=== PATIENT | female | born 1990 | race Caucasian/White ===

== ENCOUNTER 2016-09-27 06:20 | Emergency (ER) | payer SELFPAY ==
[~2016-09-27] VITALS: Ht 177.8 cm; Wt 92.0 kg
[~2016-09-27 06:20] MED LIST: CEPH500C PO
[2016-09-27 06:22] VITALS: Ht 177.8 cm; Wt 92.0 kg
[2016-09-27 07:11] LABS: BASO % 0.4 %; BASO ABS # 0.04 K/uL (0-0.2); COMPLETE YES; EOS % 2.2 %; HEMATOCRIT 42.9 % (37-47); IG% 0.1 %; LYMPH % 27.2 %; LYMPH ABS # 2.61 K/uL (1.2-3.4); MEAN CELL VOLUME 87.2 fL (80-100); MEAN CORPUSCULAR HEMOGLOBIN 30.7 pg (25-34); MEAN CORPUSCULAR HGB CONC 35.2 g/dl (32-36); MEAN PLATELET VOLUME 11.6 fL (7.4-10.4); MONO % 6.5 %; NEUT % 63.6 %; PLATELET COUNT 224 K/uL (130-400); RED BLOOD COUNT 4.92 M/uL (4.2-5.4); WHITE BLOOD COUNT 9.59 K/uL (4.8-10.8)
[2016-09-27] MEDS ORDERED: SODIUM CHLORIDE 0.9% 1000ML 2,000 ML IV STA (07:15)
[2016-09-27] MEDS ORDERED: ONDANSETRON 8 MG/54 ML D5W IV STA (07:15)
[2016-09-27 07:28] LABS: CALCIUM 9.1 mg/dl (8.5-10.1); CREATININE 0.83 mg/dl (0.60-1.20); POTASSIUM 3.8 mmol/L (3.5-5.1)
[2016-09-27 07:31] LABS: ALB/GLOB RATIO 1.3 (0.9-2)
[2016-09-27 08:14] LABS: URINE APPEARANCE CLOUDY (CLEAR); URINE BILIRUBIN NEG (NEG); URINE COLOR YELLOW; URINE EPITHELIAL CELL AUTO >30 /lpf (0-5); URINE NITRITE NEG (NEG); URINE PH 6.5 (4.5-7.5); URINE SPECIFIC GRAVITY 1.021 (1.000-1.030); UROBILINOGEN NEG (NEG); ZZUR CULT IF INDIC CLEAN CATCH YES
[2016-09-27 08:18] LABS: MANUAL MICROSCOPIC REQUIRED? NO; REVIEW REQ? YES
[2016-09-27 08:25] LABS: URINE MUCUS PRESENT (NONE PRSENT); URINE PATH CASTS 0-3 GRANULAR CASTS /lpf (0)
[2016-09-27 08:26] VITALS: PULSE 87; O2SAT 97
[2016-09-27] MEDS ORDERED: SULFAMETHOXAZOLE/TRIMETHOPRIM DS 800/160MG TAB PO STA (09:06)
[2016-09-27] MEDS ORDERED: PHENAZOPYRIDINE HCL 200 MG TAB PO STA (09:06)
[2016-09-27] MEDS ORDERED: PHEN-876 PO (09:11)
[2016-09-27] MEDS ORDERED: PROM25TA9 PO (09:11)
[2016-09-27] MEDS ORDERED: SULF800T23 PO (09:11)
[2016-09-27 09:37] VITALS: BP 118/76
--- NOTE | 2016-09-27 15:07 | EMERGENCY ROOM VISIT NOTE ---
History Report prepared by Edith: Jeremías Carrizales Under the Supervision of: Dr. Cheko Rivera M.D. First contact with patient: 06:42 Chief Complaint: ABDOMINAL PAIN Stated Complaint: STOMACH PAINS, NAUSEA Nursing Triage Summary: Patient c/o abdominal pain with associated n/v that began 3 days ago. LMP: . States she's had multiple negative preg tests at home. History of Present Illness The patient is a 26 year old female who presents to the Emergency Room with complaints of constant abdominal pain for the past three days. The pain is mostly in the center of her lower abdomen, and is rated 8/10 in severity. The patient also complains of nausea and diarrhea. Her last episode of vomiting was yesterday. The patient has had loose stools but no watery diarrhea. The patient has never had this pain before. She denies eating anything unusual. She does not know of any sick contacts. The patient denies any major medical problems. Her menstrual period is late, but she has had negative tests over the past few days. Patient denies LOC, headache, fevers, chills, diaphoresis, visual changes, neck pain, chest pain, breathing difficulties, back pain, melena , hematochezia, urinary symptoms, numbness, weakness, lymphadenopathy, rash, or other complaints. Source of History: patient Onset: three days ago Position: abdomen Symptom Intensity: 8/10 Timing: constant Associated Symptoms: + diarrhea (loose stools), + nausea, + vomiting Review of Systems See HPI for pertinent positives and negatives. A total of ten systems were reviewed and were otherwise negative. Past Medical & Surgical Medical Problems: (1) Contusion of foot, right (2) Diarrhea (3) Encounter for removal of sutures (4) Encounter for wound re-check (5) Foot laceration with complication (6) Intrauterine (7) Mass of foot or toe (8) Premature labor (9) Vomiting Surgical Problems: (1) Removal of ovarian cyst Family History Diabetes mellitus FH: cancer FH: hypertension Social History Smoking Status: Current Every Day Smoker Alcohol Use: occasionally Marital Status: Housing Status: lives with family Occupation Status: unemployed Current/Historical Medications Scheduled Sulfa/Trimethoprim (Bactrim Ds 800MG/160MG), 1 TAB PO BID Scheduled PRN Phenazopyridine HCl (Pyridium), 200 MG PO TID PRN for Frequency/Burning w/ Urination Promethazine Hcl (Phenergan), 25 MG PO Q6H PRN for Nausea Allergies Coded Allergies: No Known Allergies (Verified , 02/09/16) none Physical Exam Vital Signs Date Time Temp Pulse Resp B/P Pulse Ox O2 Delivery O2 Flow Rate FiO2 09/27/16 09:37 118/76 09/27/16 08:26 87 18 124/71 97 Room Air 09/27/16 06:22 36.8 91 18 133/79 97 Room Air Physical Exam GENERAL: Awake, alert, well-appearing, in no distress HENT: Normocephalic, atraumatic. Oropharynx unremarkable. EYES: Normal conjunctiva. Sclera non-icteric. NECK: Supple. No nuchal rigidity. FROM. No JVD. RESPIRATORY: Clear to auscultation. CARDIAC: Regular rate, normal rhythm. Extremities warm and well perfused. Pulses equal. ABDOMEN: Soft, non-distended. Epigastric tenderness to palpation. No rebound or guarding. No masses. RECTAL: Deferred. MUSCULOSKELETAL: Chest examination reveals no tenderness. The back is symmetrical on inspection without obvious abnormality. There is no CVA tenderness to palpation. No joint edema. LOWER EXTREMITIES: Calves are equal size bilaterally and non-tender. No edema. No discoloration. NEURO: Normal sensorium. No sensory or motor deficits noted. SKIN: No rash or jaundice noted. Medical Decision & Procedures Laboratory Results 09/27/16 07:00 Red Blood Count 4.92, Mean Corpuscular Volume 87.2, Mean Corpuscular Hemoglobin 30.7, Mean Corpuscular Hemoglobin Concent 35.2, Mean Platelet Volume 11.6, Neutrophils (%) (Auto) 63.6, Lymphocytes (%) (Auto) 27.2, Monocytes (%) (Auto) 6.5, Eosinophils (%) (Auto) 2.2, Basophils (%) (Auto) 0.4, Neutrophils # (Auto) 6.10, Lymphocytes # (Auto) 2.61, Monocytes # (Auto) 0.62, Eosinophils # (Auto) 0.21, Basophils # (Auto) 0.04 09/27/16 07:00 Test 09/27/16 07:00 09/27/16 07:40 White Blood Count 9.59 K/uL (4.8-10.8) Red Blood Count 4.92 M/uL (4.2-5.4) Hemoglobin 15.1 g/dL (12.0-16.0) Hematocrit 42.9 % (37-47) Mean Corpuscular Volume 87.2 fL (80-100) Mean Corpuscular Hemoglobin 30.7 pg (25-34) Mean Corpuscular Hemoglobin Concent 35.2 g/dl (32-36) Platelet Count 224 K/uL (130-400) Mean Platelet Volume 11.6 fL (7.4-10.4) Neutrophils (%) (Auto) 63.6 % Lymphocytes (%) (Auto) 27.2 % Monocytes (%) (Auto) 6.5 % Eosinophils (%) (Auto) 2.2 % Basophils (%) (Auto) 0.4 % Neutrophils # (Auto) 6.10 K/uL (1.4-6.5) Lymphocytes # (Auto) 2.61 K/uL (1.2-3.4) Monocytes # (Auto) 0.62 K/uL (0.11-0.59) Eosinophils # (Auto) 0.21 K/uL (0-0.5) Basophils # (Auto) 0.04 K/uL (0-0.2) RDW Standard Deviation 41.1 fL (36.4-46.3) RDW Coefficient of Variation 12.8 % (11.5-14.5) Immature Granulocyte % (Auto) 0.1 % Immature Granulocyte # (Auto) 0.01 K/uL (0.00-0.02) Anion Gap 7.0 mmol/L (3-11) Est Creatinine Clear Calc Drug Dose 124.1 ml/min Estimated GFR () 111.2 Estimated GFR (Non- 96.0 BUN/Creatinine Ratio 10.0 (10-20) Calcium Level 9.1 mg/dl (8.5-10.1) Total Bilirubin 0.7 mg/dl (0.2-1) Aspartate Amino Transf (AST/SGOT) 16 U/L (15-37) Alanine Aminotransferase (ALT/SGPT) 27 U/L (12-78) Alkaline Phosphatase 54 U/L (45-117) Total Protein 7.4 gm/dl (6.4-8.2) Albumin 4.2 gm/dl (3.4-5.0) Globulin 3.2 gm/dl (2.5-4.0) Albumin/Globulin Ratio 1.3 (0.9-2) Lipase 138 U/L (73-393) Urine Color YELLOW Urine Appearance CLOUDY (CLEAR) Urine pH 6.5 (4.5-7.5) Urine Specific [place] 1.021 (1.000-1.030) Urine Protein NEG (NEG) Urine Glucose (UA) NEG (NEG) Urine Ketones NEG (NEG) Urine Occult Blood 3+ (NEG) Urine Nitrite NEG (NEG) Urine Bilirubin NEG (NEG) Urine Urobilinogen NEG (NEG) Urine Leukocyte Esterase SMALL (NEG) Urine WBC (Auto) >30 /hpf (0-5) Urine RBC (Auto) 5-10 /hpf (0-4) Urine Hyaline Casts (Auto) 5-10 /lpf (0-5) Urine Epithelial Cells (Auto) >30 /lpf (0-5) Urine Bacteria (Auto) 2+ (NEG) Urine Pathogenic Casts 0-3 GRANULAR CASTS /lpf (0) Urine Mucus PRESENT (NONE PRSENT) Urine Test NEG (NEG) Laboratory results reviewed by me Medications Administered Medications (Trade) Dose Ordered Sig/Ger Route Start Time Stop Time Status Last Admin Dose Admin Sodium Chloride (Nss 1000ml) 2,000 ml @ 999 mls/hr Q2H1M STAT IV 09/27/16 07:15 09/27/16 09:15 DC 09/27/16 07:47 999 MLS/HR Ondansetron HCl (Zofran 8mg Iv) 8 mg NOW STAT IV 09/27/16 07:15 09/27/16 07:16 DC 09/27/16 07:46 8 MG Phenazopyridine HCl (Pyridium Tab) 200 mg NOW STAT PO 09/27/16 09:06 09/27/16 09:09 DC 09/27/16 09:25 200 MG Trimethoprim/ Sulfamethoxazole (Septra Ds 800/ 160MG Tab) 1 tab NOW STAT PO 09/27/16 09:06 09/27/16 09:09 DC 09/27/16 09:25 1 TAB ED Course 0714: The patient was evaluated in room A12b. A complete history and physical exam was performed. 0715: Zofran 8 mg IV, NSS 2000 ml @ 999 mls/hr. 0900: The patient was on her phone when I went to check on her. 09: Reassessed the patient. Her pain and nausea have resolved. Discussed the findings with her. She verbalized understanding and agreement of the treatment plan. The patient is ready for discharge. 0906: Septra Ds 800/160 mg PO, Pyridium 200 mg PO. Medical Decision Triage Nursing notes reviewed. The patient's presentation and history were concerning for abdominal pain. Etiologies such as viral syndrome, , biliary pathology, UTI, pancreatitis, mesenteric ischemia, aortic pathology, infections, genitourinary, perforated viscus, appendicitis, diverticulitis, obstruction, inflammatory bowel disease, renal colic, PUD,as well as others were entertained. The patient was evaluated. Her abdominal examination was benign. She was given normal saline and Zofran. On reassessment she felt much better with this. Repeat abdominal examination was benign. No pain elicited. She had an unremarkable CBC, chemistry panel, LFTs, lipase. Her test was negative. Urinalysis was concerning for infection. On further history the patient does note some dysuria and urinary frequency. She has a history of UTI. Culture was sent. Patient was given Bactrim and Pyridium. She'll be placed on his as an outpatient. She will also be given prescription Phenergan. She is no CVA tenderness or leukocytosis to suggest pyelonephritis. Conservative management was discussed and the patient was in agreement. I gave my usual and customary discussion regarding this issue. By the evaluation outlined above other emergent etiologies such as those listed in the differential, as well as others, were deemed relatively unlikely. The patient was informed about the findings as listed above. All questions were answered and she was pleased with the treatment. Return instructions were outlined and the patient was discharged in stable condition. The patient was referred for primary care follow-up for a recheck of the current condition. The chart was completed utilizing [employer] voice recognition software. Grammatical errors, random word insertions, pronoun errors, and incomplete sentences are an occasional consequence of this system due to software limitations, ambient noise, and hardware issues. Any formal questions or concerns about the content, text, or information contained within the body of this dictation should be directly addressed to the physician for clarification. Impression Primary Impression: Nausea Additional Impressions: UTI (urinary tract infection) Epigastric abdominal pain Scribe Attestation The scribe's documentation has been prepared under my direction and personally reviewed by me in its entirety. I confirm that the note above accurately reflects all work, treatment, procedures, and medical decision making performed by me. Departure Information Dispostion Home / Self-Care Prescriptions Phenazopyridine HCl (Pyridium) 200 Mg Tab 200 MG PO TID Y for Frequency/Burning w/Urination, #6 TAB Prov: Cheko Rivera MD 09/27/16 Promethazine Hcl (Phenergan) 25 Mg Tab 25 MG PO Q6H Y for Nausea, #8 TAB Prov: Cheko Rivera MD 09/27/16 Sulfa/Trimethoprim (Bactrim Ds 800MG/160MG) Tab 1 TAB PO BID, #5 TAB Prov: Cheko Rivera MD 09/27/16 Referrals No Doctor, Assigned (PCP) Forms HOME CARE DOCUMENTATION FORM, IMPORTANT VISIT INFORMATION, Work Instructions Patient Instructions My [facility] Additional Instructions Phenergan 25mg tabs, one every six hours for nausea. Trimethoprim-Sulfamethoxazole(Bactrim DS): Take one pill twice daily for 3 days for your urine infection. All antibiotics can cause diarrhea. If this occurs and you feel worse or it does not resolve in 1-2 days follow up with your doctor or return to the Emergency Department as this could be signs of serious underlying problems. Any medication can cause an allergic reaction, stop the pills immediately and return to the ER for rash, hives, breathing difficulties, or swelling. Pyridium 200mg: Take one pill three times daily as needed for urinary discomfort. This medication will turn your urine orange. This is normal and nothing to be concerned about. Ibuprofen(Motrin, Advil) may be used for fever or pain. Use 600mg every six hours as needed. Take with food. Avoid using more than 2400mg in a 24 hour period. Do not use 2400mg per day for more than three consecutive days without physician direction. Prolonged inappropriate use can lead to stomach upset or ulcers. (AND/OR) Acetaminophen(Tylenol) may be used for fever or pain. Use 1000mg every six hours as needed. Avoid using more than 4000mg in a 24 hour period. Rest and drink plenty of fluids. Continue current medications. Return to the ER immediately for worsening or persistent abdominal pain, vomiting, fevers, back or flank pain, worsening of your condition, or as needed. Follow up with a primary physician next week for a recheck of the current condition. Problem Qualifiers
== END 2016-09-27 09:37 | disposition home or self-care (01) ==
LOC: C.EDB 06:21 → C.EDA 09:37
DX: N39.0 Urinary tract infection, site not specified (principal); R11.2 Nausea with vomiting, unspecified; R10.13 Epigastric pain; Z83.3 Family history of diabetes mellitus; Z82.49 Family history of ischemic heart disease and other diseases of the circulatory system; F17.210 Nicotine dependence, cigarettes, uncomplicated

== ENCOUNTER 2016-11-05 11:09 | Emergency (ER) | payer SELFPAY ==
[~2016-11-05] VITALS: Ht 177.8 cm; Wt 86.6 kg
[~2016-11-05 11:09] MED LIST changes: -CEPH500C PO; +PHEN-876 PO; +PROM25TA9 PO; +SULF800T23 PO
[2016-11-05 11:15] VITALS: TEMP 36.9; Ht 177.8 cm; Wt 86.6 kg
[2016-11-05] MEDS ORDERED: SODIUM CHLORIDE 0.9% 1000ML 1,000 ML IV STA (11:55)
[2016-11-05] MEDS ORDERED: ONDANSETRON INJ 2 MG/ML 2 ML VIAL IV STA (11:55)
[2016-11-05 12:15] LABS: BASO % 0.2 %; BASO ABS # 0.02 K/uL (0-0.2); COMPLETE YES; EOS % 1.9 %; HEMATOCRIT 40.1 % (37-47); IG% 0.2 %; LYMPH % 22.3 %; LYMPH ABS # 2.24 K/uL (1.2-3.4); MEAN CELL VOLUME 84.2 fL (80-100); MEAN CORPUSCULAR HEMOGLOBIN 30.9 pg (25-34); MEAN CORPUSCULAR HGB CONC 36.7 g/dl (32-36); MEAN PLATELET VOLUME 11.3 fL (7.4-10.4); MONO % 8.1 %; NEUT % 67.3 %; PLATELET COUNT 213 K/uL (130-400); RED BLOOD COUNT 4.76 M/uL (4.2-5.4); WHITE BLOOD COUNT 10.03 K/uL (4.8-10.8)
[2016-11-05 12:22] LABS: URINE APPEARANCE CLOUDY (CLEAR); URINE COLOR DK YELLOW; URINE EPITHELIAL CELL AUTO >30 /lpf (0-5); URINE NITRITE NEG (NEG); URINE PH 6.5 (4.5-7.5); URINE SPECIFIC GRAVITY 1.028 (1.000-1.030); UROBILINOGEN NEG (NEG); ZZUR CULT IF INDIC CLEAN CATCH YES
[2016-11-05 12:28] LABS: MANUAL MICROSCOPIC REQUIRED? NO; REVIEW REQ? YES; URINE BILIRUBIN NEG (NEG)
[2016-11-05 12:38] LABS: URINE MUCUS PRESENT (NONE PRSENT)
[2016-11-05 12:41] LABS: BUN/CREATININE RATIO 8.4 (10-20); CREATININE 0.7 mg/dl (0.60-1.20); POTASSIUM 3.5 mmol/L (3.5-5.1)
[2016-11-05] MEDS ORDERED: ONDA4TAB10 SL (13:49)
--- NOTE | 2016-11-05 13:49 | EMERGENCY ROOM VISIT NOTE ---
History Report prepared by Edith: Zayra Michael Under the Supervision of: Dr. Kodak Obrien D.O. First contact with patient: 11:47 Chief Complaint: NAUSEA Stated Complaint: NAUSEA,VOMITING,CRAMPING Nursing Triage Summary: LUQ abd pain for 6 days. Having trouble keeping anything down. Recently found out she was , states this does not feel like her other pregnancies and morning sickness. Noticed today that she had mucus in her stool. Vomiting. 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 The patient rates her current pain as a 4/10 in severity. The patient states that along with her abdominal pain she has had nausea and vomiting. She denies any recent diarrhea. She states that she found out she was a few days ago and is between 1- 2 months but states this feels different than her previous symptoms. She states this is currently her third . She states that she has been unable to eat or to have proper fluid intake due to the nausea and vomiting. The patient states her last menstrual period was the beginning of last month. Source of History: patient Onset: 6 days [employer]ING [employer]TER Position: abdomen (middle) Symptom Intensity: 4/10 Timing: other (persistent) Associated Symptoms: + nausea, + vomiting, No diarrhea Review of Systems See HPI for pertinent positives & negatives. A total of 10 systems reviewed and were otherwise negative. Past Medical & Surgical Medical Problems: (1) Contusion of foot, right (2) Diarrhea (3) Encounter for removal of sutures (4) Encounter for wound re-check (5) Foot laceration with complication (6) Intrauterine (7) Mass of foot or toe (8) Premature labor (9) Vomiting Surgical Problems: (1) Removal of ovarian cyst Family History Diabetes mellitus FH: cancer FH: hypertension Social History Smoking Status: Never Smoker Alcohol Use: occasionally Marital Status: Housing Status: lives with family Occupation Status: unemployed Current/Historical Medications No Active Prescriptions or Reported Meds Allergies Coded Allergies: No Known Allergies (Verified , 11/05/16) none Physical Exam Vital Signs Date Time Temp Pulse Resp B/P Pulse Ox O2 Delivery O2 Flow Rate FiO2 11/05/16 13:06 58 16 110/58 100 11/05/16 11:15 36.9 62 18 127/74 99 Room Air Physical Exam CONSTITUTIONAL/VITAL SIGNS: Reviewed / noted above. GENERAL: Non-toxic in appearance. INTEGUMENTARY: Warm, dry, and [place]. HEAD: Normocephalic. EYES: without scleral icterus or trauma. ENT/OROPHARYNX: clear and moist. LYMPHADENOPATHY/NECK: Is supple without lymphadenopathy or meningismus. RESPIRATORY: Lungs clear and equal. CARDIOVASCULAR: Regular rate and rhythm. GI/ABDOMEN: Soft and nontender. No organomegaly or pulsatile mass. No rebound or guarding. Normal bowel sounds. EXTREMITIES: Warm and well perfused. BACK: No CVA tenderness. NEUROLOGICAL: Intact without focal deficits. PSYCHIATRIC: normal affect. MUSCULOSKELETAL: Normally developed with good muscle tone. Medical Decision & Procedures Laboratory Results 11/05/16 12:00 Red Blood Count 4.76, Mean Corpuscular Volume 84.2, Mean Corpuscular Hemoglobin 30.9, Mean Corpuscular Hemoglobin Concent 36.7, Mean Platelet Volume 11.3, Neutrophils (%) (Auto) 67.3, Lymphocytes (%) (Auto) 22.3, Monocytes (%) (Auto) 8.1, Eosinophils (%) (Auto) 1.9, Basophils (%) (Auto) 0.2, Neutrophils # (Auto) 6.75, Lymphocytes # (Auto) 2.24, Monocytes # (Auto) 0.81, Eosinophils # (Auto) 0.19, Basophils # (Auto) 0.02 11/05/16 12:00 Test 11/05/16 12:00 11/05/16 12:05 White Blood Count 10.03 K/uL (4.8-10.8) Red Blood Count 4.76 M/uL (4.2-5.4) Hemoglobin 14.7 g/dL (12.0-16.0) Hematocrit 40.1 % (37-47) Mean Corpuscular Volume 84.2 fL (80-100) Mean Corpuscular Hemoglobin 30.9 pg (25-34) Mean Corpuscular Hemoglobin Concent 36.7 g/dl (32-36) Platelet Count 213 K/uL (130-400) Mean Platelet Volume 11.3 fL (7.4-10.4) Neutrophils (%) (Auto) 67.3 % Lymphocytes (%) (Auto) 22.3 % Monocytes (%) (Auto) 8.1 % Eosinophils (%) (Auto) 1.9 % Basophils (%) (Auto) 0.2 % Neutrophils # (Auto) 6.75 K/uL (1.4-6.5) Lymphocytes # (Auto) 2.24 K/uL (1.2-3.4) Monocytes # (Auto) 0.81 K/uL (0.11-0.59) Eosinophils # (Auto) 0.19 K/uL (0-0.5) Basophils # (Auto) 0.02 K/uL (0-0.2) RDW Standard Deviation 38.6 fL (36.4-46.3) RDW Coefficient of Variation 12.6 % (11.5-14.5) Immature Granulocyte % (Auto) 0.2 % Immature Granulocyte # (Auto) 0.02 K/uL (0.00-0.02) Anion Gap 12.0 mmol/L (3-11) Est Creatinine Clear Calc Drug Dose 143.1 ml/min Estimated GFR () 136.7 Estimated GFR (Non- 117.9 BUN/Creatinine Ratio 8.4 (10-20) Calcium Level 9.0 mg/dl (8.5-10.1) Total Bilirubin 1.0 mg/dl (0.2-1) Direct Bilirubin 0.2 mg/dl (0-0.2) Aspartate Amino Transf (AST/SGOT) 12 U/L (15-37) Alanine Aminotransferase (ALT/SGPT) 23 U/L (12-78) Alkaline Phosphatase 49 U/L (45-117) Total Protein 7.0 gm/dl (6.4-8.2) Albumin 3.9 gm/dl (3.4-5.0) Lipase 98 U/L (73-393) Urine Color DK YELLOW Urine Appearance CLOUDY (CLEAR) Urine pH 6.5 (4.5-7.5) Urine Specific [place] 1.028 (1.000-1.030) Urine Protein 1+ (NEG) Urine Glucose (UA) NEG (NEG) Urine Ketones 2+ (NEG) Urine Occult Blood NEG (NEG) Urine Nitrite NEG (NEG) Urine Bilirubin NEG (NEG) Urine Urobilinogen NEG (NEG) Urine Leukocyte Esterase TRACE (NEG) Urine WBC (Auto) 10-30 /hpf (0-5) Urine RBC (Auto) 0-4 /hpf (0-4) Urine Hyaline Casts (Auto) 1-5 /lpf (0-5) Urine Epithelial Cells (Auto) >30 /lpf (0-5) Urine Bacteria (Auto) 2+ (NEG) Urine Renal Epithelial Cells /lpf (0-5) Urine Pathogenic Casts /lpf (0) Urine Mucus PRESENT (NONE PRSENT) Urine Test POS (NEG) Laboratory results as stated above per my review. Medications Administered Medications (Trade) Dose Ordered Sig/Ger Route Start Time Stop Time Status Last Admin Dose Admin Sodium Chloride (Nss 1000ml) 1,000 ml @ 999 mls/hr Q1H1M STAT IV 11/05/16 11:55 11/05/16 12:55 DC 11/05/16 11:55 999 MLS/HR Ondansetron HCl (Zofran Inj) 4 mg NOW STAT IV 11/05/16 11:55 11/05/16 11:56 DC 11/05/16 12:11 4 MG ED Course 1152: Previous medical records were reviewed. The patient was evaluated in room C10. A complete history and physical examination was performed. 1155: Ordered Zofran Inj 4 mg IV, Sodium Chloride 1,000 ml @ 999 mls/hr IV. 1307: On reevaluation, the patient is hemodynamically stable. I discussed the results and findings with the patient. She verbalized agreement of the treatment plan. The patient was discharged home. Medical Decision Differential diagnosis:Etiologies such as gastroenteritis, food borne illness, infections, appendicitis, diverticulitis, inflammatory bowel disease, obstruction, GI bleed, biliary pathology, as well as others were entertained. This is a 26-year-old female who presents to the ED with a chief complaint of nausea and vomiting. She denies diarrhea. She states that her last menstrual period was the beginning of last month. She feels like she is . The patient has had 2 previous children. The patient states that she did a home test and it was positive. 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 She was given paperwork here to fill out for insurance. Her vital signs are normal. CBC and complete metabolic panel were normal. Lipase is negative. Urine did not show infection but appears contaminated. There was 2+ ketones. Cultures been sent. Positive test. The patient was hydrated with IV fluids. She was given Zofran IV. She was feeling better. She is felt to be stable for discharge. Impression Primary Impression: Dehydration Additional Impressions: Vomiting First trimester Scribe Attestation The scribe's documentation has been prepared under my direction and personally reviewed by me in its entirety. I confirm that the note above accurately reflects all work, treatment, procedures, and medical decision making performed by me. Departure Information Dispostion Home / Self-Care Prescriptions Ondasetron Odt (ZOFRAN ODT) 4 Mg Tab 4 MG SL Q6H for Nausea, #30 TAB Prov: Kodak Obrien D.O. 11/05/16 Referrals No Doctor, Assigned (PCP) Forms HOME CARE DOCUMENTATION FORM, IMPORTANT VISIT INFORMATION Patient Instructions My [facility] Additional Instructions Zofran: Allow one tablet to dissolve under the tongue every 6 hours as needed for nausea or vomiting. Follow-up with your strategic planning analyst. Call for an appointment. Return for any concerns or worsening. Problem Qualifiers
[2016-11-05 14:00] VITALS: BP 109/62; PULSE 65; O2SAT 98
--- NOTE | 2016-11-07 14:00 | Pharmacy Progress Note ---
ED Pharmacist Culture FollowUp Date of Service: Nov 07, 2016. Urine Cx from 11/05/16 if growing 2 organisms: gardnerella-lilke bacilli and federico albicans. Patient had not c/o urinary symptoms, nor was there notation of vaginal discharge or pruritis in provider's note. UA had > 30 epis; indicating contamination of the urine specimen. These are likely contaminants from vaginal christa (likely colonized w/ federico and gardnerella are normal christa). No action required.
== END 2016-11-05 14:01 | disposition home or self-care (01) ==
LOC: C.EDB 11:10 → C.EDC 14:01
DX: E86.0 Dehydration (principal); O21.9 Vomiting of pregnancy, unspecified; Z3A.00 Weeks of gestation of pregnancy not specified

== ENCOUNTER 2016-11-13 19:35 | Emergency (ER) | payer SELFPAY ==
[~2016-11-13] VITALS: Ht 177.8 cm; Wt 88.9 kg
[~2016-11-13 19:35] MED LIST changes: +ONDA4TAB10 SL; -PHEN-876 PO; -PROM25TA9 PO; -SULF800T23 PO
[2016-11-13 19:41] VITALS: TEMP 36.9
[2016-11-13 20:14] VITALS: Ht 177.8 cm; Wt 88.9 kg
[2016-11-13 20:31] LABS: BASO % 0.2 %; BASO ABS # 0.03 K/uL (0-0.2); COMPLETE YES; EOS % 2.8 %; HEMATOCRIT 40.1 % (37-47); IG% 0.3 %; LYMPH % 27.2 %; LYMPH ABS # 3.39 K/uL (1.2-3.4); MEAN CELL VOLUME 87.4 fL (80-100); MEAN CORPUSCULAR HEMOGLOBIN 31.2 pg (25-34); MEAN CORPUSCULAR HGB CONC 35.7 g/dl (32-36); MEAN PLATELET VOLUME 11.6 fL (7.4-10.4); MONO % 5.7 %; NEUT % 63.8 %; PLATELET COUNT 215 K/uL (130-400); RED BLOOD COUNT 4.59 M/uL (4.2-5.4); WHITE BLOOD COUNT 12.45 K/uL (4.8-10.8)
--- NOTE | 2016-11-13 20:32 | EMERGENCY ROOM VISIT NOTE ---
History Report prepared by Edith: Eros Lester Under the Supervision of: Dr. Kodak Dugan M.D. First contact with patient: 20:06 Chief Complaint: ED VAG BLEEDING Stated Complaint: , BLOOD ON TOILET PAPER History of Present Illness The patient is a 26 year old female who presents to the Emergency Room with complaints of vaginal bleeding that began today. Her bleeding is very mild. When the patient went to the bathroom today, she noticed a small amount of blood of the toilet paper. She is , and she was tested twice in the past. However, she does not know how far along she is. She is also having some abdominal discomfort. She denies any other symptoms. Source of History: patient Onset: today Position: other (vagina) Symptom Intensity: mild Quality: other (bleeding) Timing: intermittent Associated Symptoms: + abdominal pain Note: She denies any other symptoms. Review of Systems See HPI for pertinent positives & negatives. A total of 10 systems reviewed and were otherwise negative. Past Medical & Surgical Medical Problems: (1) Contusion of foot, right (2) Diarrhea (3) Encounter for removal of sutures (4) Encounter for wound re-check (5) Foot laceration with complication (6) Intrauterine (7) Mass of foot or toe (8) Premature labor (9) Vomiting Surgical Problems: (1) Removal of ovarian cyst Family History Diabetes mellitus FH: cancer FH: hypertension Social History Smoking Status: Never Smoker Alcohol Use: occasionally Marital Status: Housing Status: lives with family Occupation Status: unemployed Current/Historical Medications No Active Prescriptions or Reported Meds Allergies Coded Allergies: No Known Allergies (Verified , 11/13/16) none Physical Exam Vital Signs Date Time Temp Pulse Resp B/P Pulse Ox O2 Delivery O2 Flow Rate FiO2 11/13/16 21:39 16 11/13/16 21:15 56 18 110/50 99 Room Air 11/13/16 19:41 36.9 80 18 134/97 95 Room Air Physical Exam GENERAL: Patient is a healthy-appearing well-nourished HEAD: Normocephalic atraumatic EYES: Ocular movements intact pupils equal and react to light OROPHARYNX mucous membranes are moist no exudates present no erythema or edema present NECK: Supple no nuchal rigidity CHEST: Good equal expansion LUNGS: Clear and equal to auscultation CARDIAC: Normal S1 and S2 ABDOMEN: Soft nontender no guarding BACK: No CVA tenderness EXTREMITIES: No pain upon palpation normal muscle strength in all groups no clubbing cyanosis or edema NEURO: Patient is following commands is answering questions appropriately. Alert and oriented x3 Cranial Nerves 2-12 grossly intact Medical Decision & Procedures ER Provider Diagnostic Interpretation: Radiology results as stated below per my review and radiologist interpretation: ULTRASOUND OF THE PELVIS CLINICAL HISTORY: Vaginal bleeding. . COMPARISON STUDY: Pelvic ultrasound dated 02/09/2016. TECHNIQUE: Real-time, grayscale, and color flow sonography of the pelvis is performed both transabdominally and endovaginally. Images are reviewed in the transverse and longitudinal planes. FINDINGS: Uterus: The gravid uterus is normal in size and echotexture, measuring over 10 cm in length. A Nabothian cyst is incidentally noted in the cervix. Gestation: There is a single live intrauterine gestation with estimated heart rate of 140 bpm. The crown-rump length measures 0.73 cm, corresponding to an estimated age of 6 weeks 4 days. A yolk sac is noted. Ovaries: The ovaries are normal in size and morphology. The right ovary measures 3.3 x 2.4 x 2.6 cm and the left ovary measures 3.8 x 1.6 x 3.5 cm. A corpus luteum is suspected on the right. Follicles are seen on the left. Normal Doppler waveforms are shown within both ovaries. Pelvis: There is no free fluid in the cul-de-sac. No concerning adnexal lesion is seen. IMPRESSION: 1. There is a single live intrauterine gestation with an estimated age of 6 weeks 4 days by crown-rump length measurement. 2. The ovaries are normal in appearance with a corpus luteum suspected on the right. Electronically signed by: Fritz Boone M.D. 11/13/2016 9:18 PM Dictated Date/Time: 11/13/2016 9:15 PM Laboratory Results 11/13/16 20:20 Red Blood Count 4.59, Mean Corpuscular Volume 87.4, Mean Corpuscular Hemoglobin 31.2, Mean Corpuscular Hemoglobin Concent 35.7, Mean Platelet Volume 11.6, Neutrophils (%) (Auto) 63.8, Lymphocytes (%) (Auto) 27.2, Monocytes (%) (Auto) 5.7, Eosinophils (%) (Auto) 2.8, Basophils (%) (Auto) 0.2, Neutrophils # (Auto) 7.93, Lymphocytes # (Auto) 3.39, Monocytes # (Auto) 0.71, Eosinophils # (Auto) 0.35, Basophils # (Auto) 0.03 11/13/16 20:20 Test 11/13/16 20:00 11/13/16 20:20 Urine Color YELLOW Urine Appearance CLOUDY (CLEAR) Urine pH 6.5 (4.5-7.5) Urine Specific [place] 1.028 (1.000-1.030) Urine Protein NEG (NEG) Urine Glucose (UA) NEG (NEG) Urine Ketones NEG (NEG) Urine Occult Blood NEG (NEG) Urine Nitrite NEG (NEG) Urine Bilirubin NEG (NEG) Urine Urobilinogen NEG (NEG) Urine Leukocyte Esterase NEG (NEG) Urine WBC (Auto) 1-5 /hpf (0-5) Urine RBC (Auto) 0-4 /hpf (0-4) Urine Hyaline Casts (Auto) 1-5 /lpf (0-5) Urine Epithelial Cells (Auto) >30 /lpf (0-5) Urine Bacteria (Auto) NEG (NEG) Urine Crystals CALCIUM OXALATE (NONE Urine Pathogenic Casts /lpf (0) Urine Mucus PRESENT (NONE PRSENT) Urine Test POS (NEG) White Blood Count 12.45 K/uL (4.8-10.8) Red Blood Count 4.59 M/uL (4.2-5.4) Hemoglobin 14.3 g/dL (12.0-16.0) Hematocrit 40.1 % (37-47) Mean Corpuscular Volume 87.4 fL (80-100) Mean Corpuscular Hemoglobin 31.2 pg (25-34) Mean Corpuscular Hemoglobin Concent 35.7 g/dl (32-36) Platelet Count 215 K/uL (130-400) Mean Platelet Volume 11.6 fL (7.4-10.4) Neutrophils (%) (Auto) 63.8 % Lymphocytes (%) (Auto) 27.2 % Monocytes (%) (Auto) 5.7 % Eosinophils (%) (Auto) 2.8 % Basophils (%) (Auto) 0.2 % Neutrophils # (Auto) 7.93 K/uL (1.4-6.5) Lymphocytes # (Auto) 3.39 K/uL (1.2-3.4) Monocytes # (Auto) 0.71 K/uL (0.11-0.59) Eosinophils # (Auto) 0.35 K/uL (0-0.5) Basophils # (Auto) 0.03 K/uL (0-0.2) RDW Standard Deviation 41.3 fL (36.4-46.3) RDW Coefficient of Variation 12.9 % (11.5-14.5) Immature Granulocyte % (Auto) 0.3 % Immature Granulocyte # (Auto) 0.04 K/uL (0.00-0.02) Prothrombin Time 10.6 SECONDS (9.0-12.0) Prothromb Time International Ratio 1.0 (0.9-1.1) Activated Partial Thromboplast Time 24.5 SECONDS (21.0-31.0) Partial Thromboplastin Ratio 0.9 Anion Gap 10.0 mmol/L (3-11) Est Creatinine Clear Calc Drug Dose 151.3 ml/min Estimated GFR () 138.6 Estimated GFR (Non- 119.6 BUN/Creatinine Ratio 8.8 (10-20) Calcium Level 8.7 mg/dl (8.5-10.1) Total Bilirubin 0.3 mg/dl (0.2-1) Aspartate Amino Transf (AST/SGOT) 16 U/L (15-37) Alanine Aminotransferase (ALT/SGPT) 23 U/L (12-78) Alkaline Phosphatase 47 U/L (45-117) Total Protein 7.0 gm/dl (6.4-8.2) Albumin 3.7 gm/dl (3.4-5.0) Globulin 3.3 gm/dl (2.5-4.0) Albumin/Globulin Ratio 1.1 (0.9-2) Human Chorionic Gonadotropin, Quant 90823 mIU/mL Chemistry Specimen Hemolysis Labs reviewed by ED physician. ED Course 2001: Past medical records reviewed. The patient was evaluated in room C7. A complete history and physical examination was performed. 2130: Upon reexamination the patient is resting. I discussed results and treatment plan with the patient. She verbalizes agreement and understanding. The patient is ready for discharge. Medical Decision Differential diagnosis: Etiologies such as ectopic , dysfunction uterine bleeding, bleeding dyscrasia, trauma, infection, as well as others were entertained. This is a 18-year-old female who presents emergency department complaining of vaginal bleeding. The patient small amount of bleeding when wiping toilet paper. She is a benign abdominal examination. The patient is requesting an ultrasound to see the baby is okay. Ultrasound shows a 6 weeks baby. Repeat examination revealed improvement patient's symptoms. I stressed the need for bed rest while the patient was continued to have vaginal bleeding I also stressed the fact that the patient is at risk for miscarriage. The patient is A+ and therefore does not need RhoGam. Based on my findings I feel the patient can be safely discharged home for follow-up with OB. patient was in agreement with the treatment plan. Impression Primary Impression: Vaginal bleeding in Scribe Attestation The scribe's documentation has been prepared under my direction and personally reviewed by me in its entirety. I confirm that the note above accurately reflects all work, treatment, procedures, and medical decision making performed by me. Departure Information Dispostion Home / Self-Care Prescriptions No Active Prescriptions or Reported Meds Referrals No Doctor, Assigned (PCP) Forms HOME CARE DOCUMENTATION FORM, IMPORTANT VISIT INFORMATION, WORK / SCHOOL INSTRUCTIONS Patient Instructions ED Miscarriage Poss, My [facility] Additional Instructions Bedrest while having Vag Bleeding Follow up with DR Linda's office You have been examined and treated today on an emergency basis only. This is not a substitute for, or an effort to provide, complete comprehensive medical care. It is impossible to recognize and treat all injuries or illnesses in a single emergency department visit. It is therefore important that you follow up closely with your PCP. Call as soon as possible for an appointment. Thank you for your time and consideration. I look forward to speaking with you again soon. Please don't hesitate to call us if you have any questions. Problem Qualifiers Primary Impression: Vaginal bleeding in Trimester: first trimester Qualified Codes: O46.91 - Antepartum hemorrhage, unspecified, first trimester
[2016-11-13 20:33] LABS: URINE APPEARANCE CLOUDY (CLEAR); URINE BILIRUBIN NEG (NEG); URINE COLOR YELLOW; URINE EPITHELIAL CELL AUTO >30 /lpf (0-5); URINE NITRITE NEG (NEG); URINE PH 6.5 (4.5-7.5); URINE SPECIFIC GRAVITY 1.028 (1.000-1.030); UROBILINOGEN NEG (NEG)
[2016-11-13 20:37] LABS: MANUAL MICROSCOPIC REQUIRED? NO; REVIEW REQ? YES
[2016-11-13 20:39] LABS: PARTIAL THROMBOPLASTIN RATIO 0.9; PROTHROMBIN TIME (PATIENT) 10.6 SECONDS (9.0-12.0)
[2016-11-13 20:47] LABS: URINE MUCUS PRESENT (NONE PRSENT)
[2016-11-13 21:06] LABS: ALB/GLOB RATIO 1.1 (0.9-2); BUN/CREATININE RATIO 8.8 (10-20); CALCIUM 8.7 mg/dl (8.5-10.1); CREATININE 0.67 mg/dl (0.60-1.20); POTASSIUM 3.5 mmol/L (3.5-5.1)
[2016-11-13 21:15] VITALS: BP 110/50; PULSE 56; O2SAT 99
--- NOTE | 2016-11-13 21:19 | DIAGNOSTIC IMAGING REPORT ---
ULTRASOUND OF THE PELVIS CLINICAL HISTORY: Vaginal bleeding. . COMPARISON STUDY: Pelvic ultrasound dated 02/09/2016. TECHNIQUE: Real-time, grayscale, and color flow sonography of the pelvis is performed both transabdominally and endovaginally. Images are reviewed in the transverse and longitudinal planes. FINDINGS: Uterus: The gravid uterus is normal in size and echotexture, measuring over 10 cm in length. A Nabothian cyst is incidentally noted in the cervix. Gestation: There is a single live intrauterine gestation with estimated heart rate of 140 bpm. The crown-rump length measures 0.73 cm, corresponding to an estimated age of 6 weeks 4 days. A yolk sac is noted. Ovaries: The ovaries are normal in size and morphology. The right ovary measures 3.3 x 2.4 x 2.6 cm and the left ovary measures 3.8 x 1.6 x 3.5 cm. A corpus luteum is suspected on the right. Follicles are seen on the left. Normal Doppler waveforms are shown within both ovaries. Pelvis: There is no free fluid in the cul-de-sac. No concerning adnexal lesion is seen. IMPRESSION: 1. There is a single live intrauterine gestation with an estimated age of 6 weeks 4 days by crown-rump length measurement. 2. The ovaries are normal in appearance with a corpus luteum suspected on the right. Electronically signed by: Fritz Boone M.D. 11/13/2016 9:18 PM Dictated Date/Time: 11/13/2016 9:15 PM
== END 2016-11-13 21:40 | disposition home or self-care (01) ==
LOC: C.EDB 19:38 → C.EDC 21:40
DX: O20.9 Hemorrhage in early pregnancy, unspecified (principal); Z3A.01 Less than 8 weeks gestation of pregnancy; Z83.3 Family history of diabetes mellitus; Z82.49 Family history of ischemic heart disease and other diseases of the circulatory system

== ENCOUNTER 2016-11-18 23:59 | Inpatient (IN) | payer SELFPAY ==
[~2016-11-18] VITALS: Ht 177.8 cm; Wt 84.7 kg
[2016-11-19 00:15] VITALS: Ht 177.8 cm; Wt 84.7 kg
[2016-11-19] MEDS ORDERED: METOCLOPRAMIDE HCL INJ 5 MG/ML 2 ML VIAL IV STA (00:46)
[2016-11-19] MEDS ORDERED: SODIUM CHLORIDE 0.9% 1000ML 1,000 ML IV STA (00:46)
[2016-11-19] MEDS ORDERED: DiphenhydrAMINE HCL 50 MG/ML VIAL IV STA (00:46)
[2016-11-19] MEDS ORDERED: FAMOTIDINE 20MG/102 ML D5W ONE (00:56)
[2016-11-19] MEDS ORDERED: PANTOprazole INJ 80 MG in DEXTROSE 5% 100ML 100 ML IV SCH (01:00)
[2016-11-19 01:11] LABS: GASTRIC OCCULT BLOOD POS (NEG)
[2016-11-19 01:19] LABS: HEMATOCRIT 42.2 % (37-47); MEAN CELL VOLUME 84.1 fL (80-100); MEAN CORPUSCULAR HEMOGLOBIN 30.5 pg (25-34); MEAN CORPUSCULAR HGB CONC 36.3 g/dl (32-36); MEAN PLATELET VOLUME 11.9 fL (7.4-10.4); PLATELET COUNT 270 K/uL (130-400); RED BLOOD COUNT 5.02 M/uL (4.2-5.4); WHITE BLOOD COUNT 17.03 K/uL (4.8-10.8)
[2016-11-19 01:33] LABS: BUN/CREATININE RATIO 12.3 (10-20); CALCIUM 9.5 mg/dl (8.5-10.1); CREATININE 0.69 mg/dl (0.60-1.20); POTASSIUM 3.5 mmol/L (3.5-5.1)
[2016-11-19 01:41] LABS: BASO % 0.2 %; BASO ABS # 0.03 K/uL (0-0.2); COMPLETE YES; EOS % 0.4 %; IG% 0.3 %; LYMPH ABS # 2.21 K/uL (1.2-3.4); MONO % 5.5 %; NEUT % 80.6 %
--- NOTE | 2016-11-19 02:42 | History and Physical ---
History & Physical Date & Time of Service: Nov 19, 2016 at 02:41 Chief Complaint: Severe Vomiting,Blood In Vomit,Dehydration Primary Care Physician: No Doctor, Assigned History of Present Illness Source: patient 26 y/o F - 6 weeks - G4, P3 - no significant medical history - developed nausea and vomiting wich persisted over the last 2 days and presented to the ER. While in the ER she had an episode of coffee-ground emesis which was confirmed as hemoccult positive. She has mild central abdominal pain. She found out she was 1 week ago.. She denies SOB, CP, dysuria, fevers. Per hospital records she had presented to the ER 11/13 with c/o vaginal bleeding and had a ultrasound showing a viable fetus with appropriate gestational parameters. She has not foillowed up with an clinical services specialist as she states she does not have insurance. Past Medical/Surgical History Medical Problems: (1) Contusion of foot, right Status: Resolved (2) Diarrhea Status: Resolved (3) Encounter for removal of sutures Status: Resolved (4) Encounter for wound re-check Status: Resolved (5) Foot laceration with complication Status: Resolved (6) Intrauterine Status: Resolved (7) Mass of foot or toe Status: Resolved (8) Premature labor Status: Resolved (9) Vomiting Status: Resolved Surgical Problems: (1) Removal of ovarian cyst Status: Resolved Family History Diabetes mellitus FH: cancer FH: hypertension Mother with DM Father healthy Social History Smokes 5 cigarettes daily Smoking Status: Current Every Day Smoker Marital Status: Housing status: lives with family Occupational Status: unemployed Immunizations History of Influenza Vaccine: Unknown History of Tetanus Vaccine?: Yes Tetanus Immunization Date: Sep 08, 2009 History of Pneumococcal: Unknown History of Hepatitis B Vaccine: Unknown Multi-Drug Resistant Organisms History of MDRO: No Allergies Coded Allergies: No Known Allergies (Verified , 11/19/16) none Home Medications No Active Prescriptions or Reported Meds Review of Systems Constitutional: No chills, No fever, No sweats Eyes: No eye pain, No worsening of vision ENT: No hearing loss, No nasal symptoms, No unusual epistaxis Respiratory: No cough, No sputum, No wheezing Cardiovascular: No PND, No chest pain, No orthopnea Abdomen: + nausea, + pain, + vomiting, No constipation, No diarrhea Musculoskeletal: No joint pain, No muscle pain Genitourinary - Female: No dysuria, No urinary frequency, No urinary urgency Neurologic: No memory loss, No paralysis, No weakness Psychiatric: No depression symptoms Endocrine: No fatigue Hematologic / Lymphatic: No abnormal bleeding/bruising Integumentary: No rash Allergic / Immunologic: No environmental allergies Physical Exam Vital Signs Date Time Temp Pulse Resp B/P Pulse Ox O2 Delivery O2 Flow Rate FiO2 11/19/16 02:31 88 20 136/70 98 Room Air 11/19/16 01:04 66 11/19/16 00:52 98 Room Air 11/19/16 00:15 36.7 79 18 170/91 95 Room Air General Appearance: WD/WN, no apparent distress Head: normocephalic, atraumatic Eyes: normal inspection, EOMI ENT: normal ENT inspection, pharynx normal Neck: supple, no JVD Respiratory/Chest: chest non-tender, lungs clear, normal breath sounds Cardiovascular: regular rate, rhythm, no edema, no JVD, normal peripheral pulses Abdomen/GI: normal bowel sounds, soft, + pertinent finding (No significant tenderness) Back: normal inspection, no CVA tenderness, no muscle spasm Extremities/Musculoskelatal: normal inspection, no calf tenderness, normal capillary refill, no pedal edema, normal range of motion 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4 % Basophils (%) (Auto) 0.2 % Neutrophils # (Auto) 13.74 1.4-6.5 K/uL Lymphocytes # (Auto) 2.21 1.2-3.4 K/uL Monocytes # (Auto) 0.94 0.11-0.59 K/uL Eosinophils # (Auto) 0.06 0-0.5 K/uL Basophils # (Auto) 0.03 0-0.2 K/uL RDW Standard Deviation 37.5 36.4-46.3 fL RDW Coefficient of Variation 12.4 11.5-14.5 % Immature Granulocyte % (Auto) 0.3 % Immature Granulocyte # (Auto) 0.05 0.00-0.02 K/uL Gastric Fluid pH 5-7 Gastric Fluid Occult Blood POS NEG Sodium Level 140 136-145 mmol/L Potassium Level 3.5 3.5-5.1 mmol/L Chloride Level 105 98-107 mmol/L Carbon Dioxide Level 22 21-32 mmol/L Anion Gap 13.0 3-11 mmol/L Blood Urea Nitrogen 9 7-18 mg/dl Creatinine 0.69 0.60-1.20 mg/dl Est Creatinine Clear Calc Drug Dose 143.7 ml/min Estimated GFR () 137.3 Estimated GFR (Non- 118.5 BUN/Creatinine Ratio 12.3 10-20 Random Glucose 111 70-99 mg/dl Calcium Level 9.5 8.5-10.1 mg/dl Total Bilirubin 0.9 0.2-1 mg/dl Direct Bilirubin 0.2 0-0.2 mg/dl Aspartate Amino Transf (AST/SGOT) 14 15-37 U/L Alanine Aminotransferase (ALT/SGPT) 27 12-78 U/L Alkaline Phosphatase 52 45-117 U/L Total Protein 8.1 6.4-8.2 gm/dl Albumin 4.6 3.4-5.0 gm/dl Lipase 160 73-393 U/L Impression Assessment and Plan 26 y/o F - 6 weeks - G4, P3 - no significant medical history - developed nausea and vomiting wich persisted over the last 2 days and presented to the ER. While in the ER she had an episode of coffee-ground emesis which was confirmed as hemoccult positive. She has mild central abdominal pain. She found out she was 1 week ago.. She denies SOB, CP, dysuria, fevers. Per hospital records she had presented to the ER 11/13 with c/o vaginal bleeding and had a ultrasound showing a viable fetus with appropriate gestational parameters. She has not foillowed up with an clinical services specialist as she states she does not have insurance. 1) Hyperemesis and hematemesis - pt will be monitored on telemetry overnight and treated with antiemetics and IVF. We have consulted the GI service. Hitory would be most consistent with a Yudy-ceja tear however she has been placed on IV Protonix pending further evaluation. 2) 6 weeks - we have consulted VENTILATING EQUIPMENT INSTALLER considering her presentation on the and her current hyperemesis and lack of follow-up. Full code - SCDs due to hematemesis Total time for this admit including review of labs, meds, previous records- discussion with pt and ER attending 31 min Level of Care Telemetry Resuscitation Status FULL RESUSCITATION VTE Prophylaxis VTE Risk Assessment Done? Y/N: Yes Risk Level: Moderate Given or contraindicated: SCD's
[2016-11-19] MEDS ORDERED: ONDANSETRON INJ 2 MG/ML 2 ML VIAL IV PRN (02:45)
--- NOTE | 2016-11-19 03:14 | EMERGENCY ROOM VISIT NOTE ---
History First contact with patient: 00:20 Chief Complaint: VOMITING Stated Complaint: SEVERE VOMITING,BLOOD IN VOMIT,DEHYDRATION Nursing Triage Summary: patient states she is 7 weeks and has been having nausea and vomiting continuously since yesterday. History of Present Illness The patient is a 26 year old female who presents to the Emergency Room with complaints of intractable nausea and vomiting who is 7 weeks . This is her fourth . She follows with Dr. De Jesus. No prior history of hyperemesis gravidarum. Patient denies vaginal bleeding, vaginal discharge, lower abdominal pain, chest pain, dyspnea, fever, chills. Patient states she cannot stop vomiting. No diarrhea. This has been intermittent for the past month. Review of Systems See HPI for pertinent positives & negatives. A total of 10 systems reviewed and were otherwise negative. Past Medical/Surgical History Medical Problems: (1) Contusion of foot, right (2) Diarrhea (3) Encounter for removal of sutures (4) Encounter for wound re-check (5) Foot laceration with complication (6) Hematemesis (7) Hyperemesis (8) Intrauterine (9) Mass of foot or toe (10) Premature labor (11) Vomiting Surgical Problems: (1) Removal of ovarian cyst Family History Diabetes mellitus FH: cancer FH: hypertension Social History Smoking Status: Current Every Day Smoker Alcohol Use: occasionally Marital Status: Housing Status: lives with family Occupation Status: unemployed Current/Historical Medications No Active Prescriptions or Reported Meds Allergies Coded Allergies: No Known Allergies (Verified , 11/19/16) none Physical Exam Vital Signs Date Time Temp Pulse Resp B/P Pulse Ox O2 Delivery O2 Flow Rate FiO2 11/19/16 02:31 88 20 136/70 98 Room Air 11/19/16 01:04 66 11/19/16 00:52 98 Room Air 11/19/16 00:15 36.7 79 18 170/91 95 Room Air Pain Rating (0-10): 0 Physical Exam VITALS: Vitals are noted on the nurse's note and reviewed by myself. Vital signs stable. GENERAL: White female actively vomiting black coffee-ground emesis screaming and yelling nondiaphoretic, well-developed well-nourished. SKIN: The skin was without rashes, erythema, edema, or bruising. There is no tenting of the skin. Capillary reflex less than 2 seconds. HEAD: Normocephalic atraumatic. EARS: External auditory canals clear, tympanic membranes pearly fernandez without erythema or effusion bilaterally. EYES: Pupils equal round and reactive to light and accommodation. Conjunctivae without injection, sclerae without icterus. Extraocular movements intact. NOSE: Patent, turbinates without inflammation or discharge. MOUTH: Mucous membranes dry. Pharynx without erythema or exudate. Uvula midline. Airway patent. Tongue does not deviate. NECK: Supple without nuchal rigidity. No lymphadenopathy. No thyromegaly. Cervical spine is nontender. No JVD. HEART: Regular rate and rhythm without murmurs gallops or rubs. LUNGS: Clear to auscultation bilaterally without wheezes, rales or rhonchi. No dullness to percussion. No retractions or accessory muscle use. ABDOMEN: Positive bowel sounds x 4. Normal tympanic percussion. Soft, nontender, without masses or organomegaly. Palmer sign negative. No guarding or rebound tenderness. MUSCULOSKELETAL: No muscle atrophy, erythema, or edema noted. NEURO: Patient was alert and oriented to person place and time. Normal sensation to light and sharp touch. No focal neurological deficits. Medical Decision & Procedures Laboratory Results 11/19/16 00:40 Red Blood Count 5.02, Mean Corpuscular Volume 84.1, Mean Corpuscular Hemoglobin 30.5, Mean Corpuscular Hemoglobin Concent 36.3, Mean Platelet Volume 11.9, Neutrophils (%) (Auto) 80.6, Lymphocytes (%) (Auto) 13.0, Monocytes (%) (Auto) 5.5, Eosinophils (%) (Auto) 0.4, Basophils (%) (Auto) 0.2, Neutrophils # (Auto) 13.74, Lymphocytes # (Auto) 2.21, Monocytes # (Auto) 0.94, Eosinophils # (Auto) 0.06, Basophils # (Auto) 0.03 11/19/16 00:40 Test 11/19/16 00:40 White Blood Count 17.03 K/uL (4.8-10.8) Red Blood Count 5.02 M/uL (4.2-5.4) Hemoglobin 15.3 g/dL (12.0-16.0) Hematocrit 42.2 % (37-47) Mean Corpuscular Volume 84.1 fL (80-100) Mean Corpuscular Hemoglobin 30.5 pg (25-34) Mean Corpuscular Hemoglobin Concent 36.3 g/dl (32-36) Platelet Count 270 K/uL (130-400) Mean Platelet Volume 11.9 fL (7.4-10.4) Neutrophils (%) (Auto) 80.6 % Lymphocytes (%) (Auto) 13.0 % Monocytes (%) (Auto) 5.5 % Eosinophils (%) (Auto) 0.4 % Basophils (%) (Auto) 0.2 % Neutrophils # (Auto) 13.74 K/uL (1.4-6.5) Lymphocytes # (Auto) 2.21 K/uL (1.2-3.4) Monocytes # (Auto) 0.94 K/uL (0.11-0.59) Eosinophils # (Auto) 0.06 K/uL (0-0.5) Basophils # (Auto) 0.03 K/uL (0-0.2) RDW Standard Deviation 37.5 fL (36.4-46.3) RDW Coefficient of Variation 12.4 % (11.5-14.5) Immature Granulocyte % (Auto) 0.3 % Immature Granulocyte # (Auto) 0.05 K/uL (0.00-0.02) Gastric Fluid pH 5-7 Gastric Fluid Occult Blood POS (NEG) Anion Gap 13.0 mmol/L (3-11) Est Creatinine Clear Calc Drug Dose 143.7 ml/min Estimated GFR () 137.3 Estimated GFR (Non- 118.5 BUN/Creatinine Ratio 12.3 (10-20) Calcium Level 9.5 mg/dl (8.5-10.1) Total Bilirubin 0.9 mg/dl (0.2-1) Direct Bilirubin 0.2 mg/dl (0-0.2) Aspartate Amino Transf (AST/SGOT) 14 U/L (15-37) Alanine Aminotransferase (ALT/SGPT) 27 U/L (12-78) Alkaline Phosphatase 52 U/L (45-117) Total Protein 8.1 gm/dl (6.4-8.2) Albumin 4.6 gm/dl (3.4-5.0) Lipase 160 U/L (73-393) Medications Administered Medications (Trade) Dose Ordered Sig/Ger Route Start Time Stop Time Status Last Admin Dose Admin Metoclopramide HCl (Reglan Inj) 10 mg NOW STAT IV 11/19/16 00:46 11/19/16 00:47 DC 11/19/16 01:04 10 MG Diphenhydramine HCl 25 mg 25 mg NOW STAT IV 11/19/16 00:46 11/19/16 00:47 DC 11/19/16 01:04 25 MG Sodium Chloride 1,000 ml @ 999 mls/hr Q1H1M STAT IV 11/19/16 00:46 11/19/16 01:46 DC 11/19/16 01:03 999 MLS/HR Pantoprazole Sodium/Dextrose (Protonix Inj/D5 100ml) 120 ml @ 400 mls/hr NOW IV 11/19/16 01:00 12/19/16 00:59 11/19/16 01:54 400 MLS/HR ED Course Prior records/ancillary studies reviewed. Triage Nursing notes reviewed. Additional history obtained from the family. The patient's history was concerning for nausea, vomiting, who is 7 weeks Differential diagnosis: Etiologies such as hyperemesis gravidarum, gastroenteritis, food borne illness, infections, appendicitis, diverticulitis, inflammatory bowel disease, obstruction, GI bleed, biliary pathology, as well as others were entertained. Physical examination findings: As above. Abdominal examination revealed minimal epigastric tenderness. Vital signs reviewed and revealed stable. ER treatment provided: IV hydration 1 L NSS. Protonix, Reglan, Benadryl On reassessment the patient felt better. Patient was tolerating p.o. intake. Diagnostics interpretation by me: The labs revealed leukocytosis, stable H&H Imaging studies: As of from the other day was reviewed Consultation: A consultation was placed with the GI specialist, Dr. Belcher and recommends Protonix and medical admission. I consulted Dr. Duke and will evaluate the patient. The case was discussed and diagnostics were reviewed. The patient was evaluated in the ER for further treatment. This appears to be consistent with intractable vomiting with hematemesis. Patient was started on Protonix. She will be evaluated by medicine. She felt much better to be medicated as above. Stable H&H. She has a leukocytosis. She had no lower abdominal pain or vaginal bleeding on clinical exam. By the evaluation outlined above emergent etiologies such as appendicitis, diverticulitis, obstruction, cardiac sources, mesenteric ischemia, aortic pathology, inflammatory bowel disease, renal colic, biliary pathology, UTI, as well as others were deemed relatively unlikely. The pt informed about the findings as listed above. All questions were answered and pleased with the treatment. Case reviewed with my attending Medical Decision As above Impression Primary Impression: Hematemesis Additional Impressions: Intractable vomiting Departure Information Dispostion Being Evaluated By Hospitalist Condition FAIR Prescriptions No Active Prescriptions or Reported Meds Referrals No Doctor, Assigned (PCP) Patient Instructions My [facility] Problem Qualifiers Primary Impression: Hematemesis Nausea presence: with nausea Qualified Codes: K92.0 - Hematemesis; R11.0 - Nausea
[2016-11-19 03:36] VITALS: BP 107/63; PULSE 54; TEMP 36.3; O2SAT 100
[2016-11-19] MEDS: PANTOprazole INJ 40 MG in DEXTROSE 5% 100ML IV SCH ×4 (04:00→21:27)
[2016-11-19] MEDS: D5NSS + 20MEQ KCL 1,000 ML IV SCH ×2 (04:00→12:46)
[2016-11-19 07:14] VITALS: BP 113/59; PULSE 57; TEMP 36.5; O2SAT 97
[2016-11-19] MEDS ORDERED: INFLUENZA ADMINISTRATION CHARGE ONE (08:00)
[2016-11-19] MEDS ORDERED: INFLUENZA VIRUS QUAD VACCINE 0.5 ML SYR IM. ONE (08:00)
--- NOTE | 2016-11-19 09:14 | Gastrointestinal Consultation ---
Gastrointestinal Consultation Date of Consultation: Nov 19, 2016 History of Present Illness Patient is a 26 year old female, (7 week gestation), with past medical history of anxiety and depression who presents to the ER with concerns of dehydration and inadequate PO intake following intermittent n/v x 3 days. GI is consulted for 2 episodes of emesis that were coffee ground in appearance, while in the ER she had an episode of coffee-ground emesis which was confirmed as Hemoccult positive. Today she is seen and evaluated. Reports that she had two episodes of emesis this morning, just bile. No coffee ground appearance or bright red blood. She developed loose stool since admission, which is not typical for her. Denies any lower abdominal pain, cramping, black/bloody stools. Denies any sick contacts. Denies previous similar episodes with other pregnancysDenies any abdominal pain, fever, chills, chest pain, SOB. EGD: No previous study Colonoscopy: No previous study Past Medical/Surgical History Medical Problems: (1) Dehydration Status: Acute (2) First trimester Status: Acute (3) Fracture of fifth metacarpal bone Status: Acute (4) Intractable vomiting Status: Acute (5) Status: Acute (6) Vaginal bleeding in Status: Acute Family History Diabetes mellitus FH: cancer FH: hypertension Social History Smoking Status: Current Every Day Smoker Alcohol Use: occasionally Marital Status: Housing Status: lives with family Occupation Status: unemployed Allergies Coded Allergies: No Known Allergies (Verified , 11/19/16) none Current Medications Home Meds and Scripts Medications Dose Route/Sig Max Daily Dose Days Date Category No Active Prescriptions or Reported Medications Rx Review of Systems Constitutional: No chills, No fever Cardiac: No chest pain, No edema Abdomen: + GI bleeding, + diarrhea, + nausea, + vomiting, No constipation, No dysphagia, No odynophagia, No pain Physical Exam Date Time Temp Pulse Resp B/P Pulse Ox O2 Delivery O2 Flow Rate FiO2 11/19/16 08:00 Room Air 11/19/16 07:14 36.5 57 16 113/59 97 Room Air 11/19/16 03:36 36.3 54 14 107/63 100 Room Air 11/19/16 02:31 88 20 136/70 98 Room Air 11/19/16 01:04 66 11/19/16 00:52 98 Room Air 11/19/16 00:15 36.7 79 18 170/91 95 Room Air General Appearance: no apparent distress Eyes: PERRL ENT: hearing grossly normal Neck: supple, trachea midline Respiratory/Chest: lungs clear, normal breath sounds, no respiratory distress, no accessory muscle use Cardiovascular: regular rate, rhythm, no edema, no gallop, no JVD, no murmur Abdomen: normal bowel sounds, non tender, soft, no organomegaly, no pulsatile mass Neurologic/Psych: alert, normal mood/affect, oriented x 3 Skin: normal color, no jaundice, warm/dry, no rash Laboratory Results Last 24 Hours Test 11/19/16 00:40 11/19/16 04:17 11/19/16 07:47 White Blood Count 17.03 K/uL Red Blood Count 5.02 M/uL Hemoglobin 15.3 g/dL 13.9 g/dL Hematocrit 42.2 % Mean Corpuscular Volume 84.1 fL Mean Corpuscular Hemoglobin 30.5 pg Mean Corpuscular Hemoglobin Concent 36.3 g/dl Platelet Count 270 K/uL Mean Platelet Volume 11.9 fL Neutrophils (%) (Auto) 80.6 % Lymphocytes (%) (Auto) 13.0 % Monocytes (%) (Auto) 5.5 % Eosinophils (%) (Auto) 0.4 % Basophils (%) (Auto) 0.2 % Neutrophils # (Auto) 13.74 K/uL Lymphocytes # (Auto) 2.21 K/uL Monocytes # (Auto) 0.94 K/uL Eosinophils # (Auto) 0.06 K/uL Basophils # (Auto) 0.03 K/uL RDW Standard Deviation 37.5 fL RDW Coefficient of Variation 12.4 % Immature Granulocyte % (Auto) 0.3 % Immature Granulocyte # (Auto) 0.05 K/uL Gastric Fluid pH 5-7 Gastric Fluid Occult Blood POS Sodium Level 140 mmol/L Potassium Level 3.5 mmol/L Chloride Level 105 mmol/L Carbon Dioxide Level 22 mmol/L Anion Gap 13.0 mmol/L Blood Urea Nitrogen 9 mg/dl Creatinine 0.69 mg/dl Est Creatinine Clear Calc Drug Dose 143.7 ml/min Estimated GFR () 137.3 Estimated GFR (Non- 118.5 BUN/Creatinine Ratio 12.3 Random Glucose 111 mg/dl Calcium Level 9.5 mg/dl Total Bilirubin 0.9 mg/dl Direct Bilirubin 0.2 mg/dl Aspartate Amino Transf (AST/SGOT) 14 U/L Alanine Aminotransferase (ALT/SGPT) 27 U/L Alkaline Phosphatase 52 U/L Total Protein 8.1 gm/dl Albumin 4.6 gm/dl Lipase 160 U/L Impression Patient is a 26 year old female, 7 week gestation without any insurance or outpatient following presenting with nausea and vomiting with 2 episodes of coffee ground emesis that were heme +. Differentials include hyperemesis gravidarum, Yudy-Hankins tear, viral gastroenteritis etc Plan NPO PPI drip IV Zofran q6 Trend H&H Monitor stools and emesis If hemodynamically stable and no more episodes of coffee ground emesis hematemesis may use PO PPI BID ?EGD - patient agreeable if medically necessary I saw and evaluated the patient. She presents with a question of hematemesis yesterday after having multiple episodes of vomiting over the last week. She is presently 7 weeks with her fourth . Physical examination No obvious distress No scleral icterus Impression: Patient presents with symptoms consistent with hyperemesis likely related to her first trimester . I would suggest transitioning her Protonix to 40 mg once times daily and following her clinical course. It may be helpful to get gynecology input as to the best options for management of her hyperemesis should it persist. Plans Protonix 40 mg per day No plans for upper endoscopy at this time given the patient's Consider PERSONAL LINES APPRAISER consultation
--- NOTE | 2016-11-19 11:54 | Hospitalist Progress Note ---
Hospitalist Progress Note Date of Service Nov 19, 2016. Subjective Pt evaluation today including: conversation w/ patient, physical exam, chart review, lab review, review of studies, review of inpatient medication list Voiding: no voiding problems, no incontinence Patient states she is feeling improved. She still admits to mild nausea. Denies any recent vomiting or hematemesis. NPO due to ?EGD by GI. This is patient's 4th . Denies any similar symptoms with previous pregnancies. Patient denies any fever, chills, sweats, lightheadedness, dizziness, vision changes, CP , palpitations, edema, SOB, wheezing, cough, abdominal pain, vomiting, diarrhea , urinary symptoms, melena, numbness/tingling, weakness, muscle/joint pain, anxiety/depression, active bleeding, or new skin discoloration/changes. Medications Current Inpatient Medications Medications (Trade) Dose Ordered Sig/Ger Route Start Time Stop Time Status Last Admin Dose Admin Ondansetron HCl 4 mg 4 mg Q6H PRN IV 11/19/16 02:45 12/19/16 02:44 11/19/16 04:01 4 MG Potassium Chloride/Dextrose/ Sod Cl 1,000 ml @ 125 mls/hr Q8H IV 11/19/16 03:30 11/19/16 19:29 11/19/16 04:00 125 MLS/HR Pantoprazole Sodium/Dextrose (Protonix Inj/D5 100ml) 100 ml @ 20 mls/hr Q5H IV 11/19/16 02:45 12/19/16 02:44 11/19/16 10:06 20 MLS/HR Objective Vital Signs Date Time Temp Pulse Resp B/P Pulse Ox O2 Delivery O2 Flow Rate FiO2 11/19/16 08:00 Room Air 11/19/16 07:14 36.5 57 16 113/59 97 Room Air 11/19/16 03:36 36.3 54 14 107/63 100 Room Air 11/19/16 02:31 88 20 136/70 98 Room Air 11/19/16 01:04 66 11/19/16 00:52 98 Room Air 11/19/16 00:15 36.7 79 18 170/91 95 Room Air Physical Exam General Appearance: no apparent distress Eyes: normal inspection, PERRL ENT: hearing grossly normal Neck: supple Respiratory/Chest: lungs clear, no respiratory distress, no accessory muscle use Cardiovascular: regular rate, rhythm Abdomen: normal bowel sounds, non tender, soft Extremities: no pedal edema, no calf tenderness Neurologic/Psychiatric: alert, normal mood/affect, oriented x 3 Skin: normal color, warm/dry, no rash Laboratory Results Last 24 Hours Test 11/19/16 00:40 11/19/16 04:17 11/19/16 07:47 White Blood Count 17.03 K/uL Red Blood Count 5.02 M/uL Hemoglobin 15.3 g/dL 13.9 g/dL 13.3 g/dL Hematocrit 42.2 % Mean Corpuscular Volume 84.1 fL Mean Corpuscular Hemoglobin 30.5 pg Mean Corpuscular Hemoglobin Concent 36.3 g/dl Platelet Count 270 K/uL Mean Platelet Volume 11.9 fL Neutrophils (%) (Auto) 80.6 % Lymphocytes (%) (Auto) 13.0 % Monocytes (%) (Auto) 5.5 % Eosinophils (%) (Auto) 0.4 % Basophils (%) (Auto) 0.2 % Neutrophils # (Auto) 13.74 K/uL Lymphocytes # (Auto) 2.21 K/uL Monocytes # (Auto) 0.94 K/uL Eosinophils # (Auto) 0.06 K/uL Basophils # (Auto) 0.03 K/uL RDW Standard Deviation 37.5 fL RDW Coefficient of Variation 12.4 % Immature Granulocyte % (Auto) 0.3 % Immature Granulocyte # (Auto) 0.05 K/uL Gastric Fluid pH 5-7 Gastric Fluid Occult Blood POS Sodium Level 140 mmol/L Potassium Level 3.5 mmol/L Chloride Level 105 mmol/L Carbon Dioxide Level 22 mmol/L Anion Gap 13.0 mmol/L Blood Urea Nitrogen 9 mg/dl Creatinine 0.69 mg/dl Est Creatinine Clear Calc Drug Dose 143.7 ml/min Estimated GFR () 137.3 Estimated GFR (Non- 118.5 BUN/Creatinine Ratio 12.3 Random Glucose 111 mg/dl Calcium Level 9.5 mg/dl Total Bilirubin 0.9 mg/dl Direct Bilirubin 0.2 mg/dl Aspartate Amino Transf (AST/SGOT) 14 U/L Alanine Aminotransferase (ALT/SGPT) 27 U/L Alkaline Phosphatase 52 U/L Total Protein 8.1 gm/dl Albumin 4.6 gm/dl Lipase 160 U/L Assessment and Plan 26 y/o F - 6 weeks - G4, P3 - no significant medical history - developed nausea and vomiting wich persisted over the last 2 days and presented to the ER. While in the ER she had an episode of coffee-ground emesis which was confirmed as Hemoccult positive. She has mild central abdominal pain. She found out she was 1 week ago.. She denies SOB, CP, dysuria, fevers. Per hospital records she had presented to the ER 11/13 with c/o vaginal bleeding and had a ultrasound showing a viable fetus with appropriate gestational parameters. She has not followed-up with an slip cover cutter as she states she does not have insurance. Hyperemesis/hematemesis, ?Yudy-Hankins tear: - Admit to tele for cardiac monitoring-->reviewed- episodes of bradycardia (40s ) w/ episodes of tachycardia (100-110s) - IV D5NSS + 20 mEq KCL - NPO--> will advance diet once ?EGD and/or as tolerated by patient - PPI drip - IV Zofran PRN - Trended H&H- stable - Consult GI appreciate recommendations -- ?EGD - Follow PRP and mag level 6 weeks : - Consulted MORTGAGE ADVISOR, appreciate recommendations - Will consult clinical social work therapist to help w/ no insurance and need for MORTGAGE ADVISOR outpt f/u needs Leukocytosis, ?secondary to , ?reacting to N/V: - No s/s of infection, continue to monitor - Follow CBC DVT prophylaxis: ANGI and SCDs -- No chemical therapy secondary to hematemesis Code Status: LEVEL I, FULL Dispo: Discharge to home once medically stable
[2016-11-19] MEDS ORDERED: IBUPROFEN 600 MG TAB PO STA (15:49)
[2016-11-19] MEDS ORDERED: ONDANSETRON INJ 2 MG/ML 2 ML VIAL IV STA (15:56)
[2016-11-19] MEDS ORDERED: MoRPHine SULFATE 2 MG/ML CARP ONE (15:57)
[2016-11-19] MEDS ORDERED: MoRPHine SULFATE 2 MG/ML CARP IV PRN (16:00)
[2016-11-19] MEDS ORDERED: IBUPROFEN 600 MG TAB PO PRN (16:00)
[2016-11-19 16:01] VITALS: BP 137/77; PULSE 54; TEMP 36.5; O2SAT 97
[2016-11-19] MEDS ORDERED: PROMETHAZINE HCL INJ 25 MG in SODIUM CHLORIDE 0.9% 50ML 50 ML IV ONE (16:15)
[2016-11-19] MEDS ORDERED: KETOROLAC TROMETHAMINE 15 MG/ML VIAL IV ONE (16:45)
--- NOTE | 2016-11-19 19:02 | GYNECOLOGICAL CONSULTATION ---
DATE OF CONSULTATION: 11/19/2016 CHIEF COMPLAINT: , hyperemesis, and bleeding. HISTORY OF PRESENT ILLNESS: The patient is a 26-year-old 4, para 3. General health is good. She is on no chronic pills or medication. No known drug allergies. Her last menstrual period is 09/24/2016, described as spotting. She stated that she had a transvaginal ultrasound in the hospital done about a week prior to admission, at which time she had a dystocia at a gestational age of about 6 weeks. She was admitted in the braid maker hours at 11/19/2016 for nausea and vomiting with vomiting of blood, placed on an IV and at about 02:00 p.m., she started having some vaginal bleeding and cramps and I was consulted to see the patient. I did previously deliver her prior 3 children. PAST MEDICAL HISTORY: She has 3 children, in good health. ALLERGIES: She has no known drug allergies. PAST SURGICAL HISTORY: She had a cyst removed from her right fallopian tube during one of her pregnancies. MEDICAL HISTORY: No history of rheumatic fever, heart disease, heart murmur, diabetes, or tuberculosis. SOCIAL HISTORY: Smokes 4 cigarettes a day and has done so for 11 years. No history of alcohol intake. Presently unemployed. FAMILY HISTORY: Mom is 46 in good health. Father 49 now in good health. Two sisters in good health. REVIEW OF SYSTEMS: HEAD: No symptoms of frequent or severe headaches. EYES: No symptoms of blurred vision or double vision. EARS: No symptoms of frequent ear infection or difficulty hearing. NOSE: No symptoms of frequent nosebleeds or difficulty breathing through her nose. PHYSICAL EXAMINATION: GENERAL: Well-developed and well-nourished 26-year-old white female, alert and oriented x3 and cooperative, in mild distress. EYES: Conjunctivae are pink. Sclerae white. No evidence of jaundice. EARS: Normal light reflex bilaterally. NOSE: Had normal mucosa. Septum is midline. There were no polyps. THROAT: No erythema or evidence of infection. Teeth are in good state of repair. HEAD: Normocephalic. Normal distribution of hair. NECK: Supple. Trachea midline. Thyroid is not enlarged. There is no adenopathy appreciated. Both carotids are of good intensity. HEART: Had regular rhythm, S1 and S2 are normal. BREASTS: Normal. CHEST: Clear to auscultation and percussion. ABDOMEN: Soft and nontender. PELVIC: Revealed an anteverted uterus of approximately 10-11 weeks' gestational size. There were no adnexal masses appreciated. There was [id number] amount of bleeding. MUSCULOSKELETAL: Revealed no calf tenderness. IMPRESSIONS OF THIS CASE: Hyperemesis gravidarum, intrauterine of uncertain gestation, vaginal bleeding, and a history of removal of right fallopian tube cyst.
--- NOTE | 2016-11-19 19:06 | DIAGNOSTIC IMAGING REPORT ---
FIRST TRIMESTER OBSTETRICAL ULTRASOUND (transabdominal and endovaginal scanning) CLINICAL HISTORY: Vaginal bleeding. Hyperemesis. . COMPARISON STUDY: 11/13/2016 FINDINGS: A single intrauterine gestation is visualized. The crown-rump length measures 15.8 mm corresponding to an estimated postmenstrual age of 8 weeks and 0 days. The gestational sac appears smaller on today's study and slightly irregular. No embryonic cardiac activity was demonstrated. A 5 mm yolk sac was visualized. The maternal right ovary measured 34 x 20 x 20 mm. The maternal left ovary measured 32 x 15 x 18 mm. IMPRESSION: Single intrauterine gestation with estimated postmenstrual age of 8 weeks and 0 days. The gestational sac appears smaller than on the prior study and somewhat irregular. No cardiac activity was demonstrated. The findings likely represent a missed . If desired, for confirmation, a repeat study could be obtained in 2 - 3 days. Electronically signed by: Kailash Cochran M.D. 11/19/2016 7:04 PM Dictated Date/Time: 11/19/2016 6:58 PM
[2016-11-19 19:40] VITALS: BP 142/79; PULSE 51; TEMP 36.2; O2SAT 98
[2016-11-19 23:44] VITALS: BP 91/47; PULSE 62; TEMP 37.1; O2SAT 98
[2016-11-20] VITALS (7 sets, daily range): BP systolic 85–111; BP diastolic 60–72; PULSE 58–85; TEMP 36.4–36.8; O2SAT 97–99
[2016-11-20] MEDS ORDERED: LORAZEPAM INJ 0.5 MG in SYRINGE 0.25 ML IV STA (00:35)
[2016-11-20] MEDS: PANTOprazole INJ 40 MG in DEXTROSE 5% 100ML IV SCH ×2 (02:12→07:12)
[2016-11-20 06:02] LABS: HEMATOCRIT 31.3 % (37-47); MEAN CELL VOLUME 85.3 fL (80-100); MEAN CORPUSCULAR HEMOGLOBIN 30.5 pg (25-34); MEAN CORPUSCULAR HGB CONC 35.8 g/dl (32-36); MEAN PLATELET VOLUME 11.7 fL (7.4-10.4); PLATELET COUNT 209 K/uL (130-400); RED BLOOD COUNT 3.67 M/uL (4.2-5.4); WHITE BLOOD COUNT 15.01 K/uL (4.8-10.8)
[2016-11-20 06:36] LABS: BUN/CREATININE RATIO 12.5 (10-20); CALCIUM 8.3 mg/dl (8.5-10.1); CREATININE 0.57 mg/dl (0.60-1.20); MAGNESIUM 2.1 mg/dl (1.8-2.4); POTASSIUM 3.7 mmol/L (3.5-5.1)
[2016-11-20] MEDS ORDERED: MULTI-VITAMIN INFUSION INJ 10 ML, THIAMINE HCL INJ 100 MG, FoLIC ACID INJ 1 MG in SODIU... IV SCH (09:00)
[2016-11-20] MEDS ORDERED: PANTOprazole SOD 40 MG TAB PO SCH (10:00)
[2016-11-20] MEDS ORDERED: PROPOFOL IV EMULSION 10 MG/ML 20 ML VIAL IV ONE (12:25)
[2016-11-20] MEDS ORDERED: ONDANSETRON INJ 2 MG/ML 2 ML VIAL ONE (12:25)
[2016-11-20] MEDS ORDERED: DEXAMETHASONE SOD INJ 4 MG/ML VIAL ONE (12:25)
[2016-11-20] MEDS ORDERED: LIDOCAINE HCL 2% 2 ML VIAL (20MG/ML) ONE (12:25)
[2016-11-20] MEDS ORDERED: MIDAZOLAM HCL 1 MG/ML 2ML VIAL ONE (12:25)
[2016-11-20] MEDS ORDERED: FENTANYL CITRATE INJ 50 MCG/1 ML 2 ML VIAL ONE (12:26)
[2016-11-20] MEDS ORDERED: HYDROmorphone INJ 1 MG/ML SYR IV PRN (12:45)
[2016-11-20] MEDS ORDERED: EpHEDrine SULFATE INJ 50 MG/ML AMP IV PRN (12:45)
[2016-11-20] MEDS ORDERED: ATROPINE SULFATE 0.1 MG/ML 5ML SYR IV PRN (12:45)
[2016-11-20] MEDS ORDERED: ONDANSETRON INJ 2 MG/ML 2 ML VIAL IV PRN ×2 (12:45→13:30)
[2016-11-20] MEDS ORDERED: FENTANYL CITRATE INJ 50 MCG/1 ML 2 ML VIAL IV PRN (12:45)
--- NOTE | 2016-11-20 12:55 | History & Physical Bridge Note ---
H&P Re-Evaluation Bridge Note: I have examined the patient, reviewed the History & Physical and in the interval since the performance of the History & Physical I have noted the following changes of clinical significance: No changes noted dilatation of cervix suction and sharp curettage planed
[2016-11-20] MEDS ORDERED: ROCURONIUM BROMIDE 10 MG/ML 5 ML VIAL ONE (13:16)
[2016-11-20] MEDS ORDERED: OXYTOCIN INJ 10 UNITS/ML VIAL ONE (13:16)
[2016-11-20] MEDS ORDERED: SUCCINYLCHOLINE CHLORIDE 20 MG/ML 10 ML VIAL IV ONE (13:16)
--- NOTE | 2016-11-20 13:23 | Hospitalist Progress Note ---
Hospitalist Progress Note Date of Service Nov 20, 2016. Subjective Pt evaluation today including: conversation w/ patient, physical exam, chart review, lab review, review of studies, review of inpatient medication list Voiding: no voiding problems, no incontinence Abdominal cramping has subsided. Vaginal bleeding has stopped. NPO status- planned for D&C due to miscarriage. Patient denies any fever, chills, sweats, lightheadedness, dizziness, vision changes, CP, palpitations, edema, SOB, wheezing, cough, abdominal pain, nausea, vomiting, diarrhea, urinary symptoms, melena, numbness/tingling, weakness, muscle/joint pain, anxiety/depression, active bleeding, or new skin discoloration/changes. Medications Current Inpatient Medications Medications (Trade) Dose Ordered Sig/Ger Route Start Time Stop Time Status Last Admin Dose Admin Ondansetron HCl (Zofran Inj) 4 mg Q6H PRN IV 11/19/16 02:45 12/19/16 02:44 11/19/16 04:01 4 MG Morphine Sulfate (MoRPHine SULFATE INJ) 2 mg Q4 PRN IV 11/19/16 16:00 12/03/16 15:59 11/19/16 22:30 2 MG Ibuprofen 600 mg 600 mg QID PRN PO 11/19/16 16:00 12/19/16 15:59 11/19/16 20:36 600 MG Multivitamins/ Thiamine HCl/ Folic Acid/Sodium Chloride (Mvi Infusion Inj/Vitamin B-1 Inj/Folvite Inj/ Nss 1000ml) 1,011.2 ml @ 125 mls/ hr DAILY@0900 IV 11/20/16 09:00 12/20/16 08:59 Pantoprazole Sodium (Protonix Tab) 40 mg QAM PO 11/20/16 10:00 12/20/16 09:59 Fentanyl Citrate (Fentanyl Inj) 25 mcg Q5M PRN IV 11/20/16 12:45 11/20/16 17:45 Hydromorphone HCl (Dilaudid Inj) 0.5 mg Q5M PRN IV 11/20/16 12:45 11/20/16 17:45 Ondansetron HCl (Zofran Inj) 4 mg ONE PRN IV 11/20/16 12:45 11/20/16 17:45 Ephedrine Sulfate (EpHEDrine SULFATE INJ) 5 mg Q5M PRN IV 11/20/16 12:45 11/20/16 17:45 Atropine Sulfate (Atropine Sulfate 0.1MG/Ml Inj) 0.5 mg Q1M PRN IV 11/20/16 12:45 11/20/16 17:45 Objective Vital Signs Date Time Temp Pulse Resp B/P Pulse Ox O2 Delivery O2 Flow Rate FiO2 11/20/16 11:49 36.7 78 18 110/60 97 Room Air 11/20/16 08:00 98 Room Air 11/20/16 07:28 36.8 58 16 85/68 98 Room Air 11/20/16 03:50 36.4 11/20/16 00:00 Room Air 11/19/16 23:44 37.1 62 20 91/47 98 Room Air 11/19/16 20:00 Room Air 11/19/16 19:40 36.2 51 16 142/79 98 Room Air 11/19/16 16:01 36.5 54 18 137/77 97 Room Air 11/19/16 16:00 Room Air Physical Exam General Appearance: no apparent distress Eyes: normal inspection, PERRL ENT: hearing grossly normal Neck: supple Respiratory/Chest: lungs clear, no respiratory distress, no accessory muscle use Cardiovascular: regular rate, rhythm Abdomen: normal bowel sounds, non tender, soft Extremities: no pedal edema, no calf tenderness Neurologic/Psychiatric: alert, oriented x 3, + pertinent finding (tearful ) Skin: normal color, warm/dry, no rash Laboratory Results Last 24 Hours Test 11/19/16 16:10 11/19/16 23:00 11/20/16 05:16 Progesterone Level 9.25 ng/mL Human Chorionic Gonadotropin, Quant 67667 mIU/mL Hemoglobin 11.2 g/dL 11.2 g/dL Hematocrit 31.0 % 31.3 % White Blood Count 15.01 K/uL Red Blood Count 3.67 M/uL Mean Corpuscular Volume 85.3 fL Mean Corpuscular Hemoglobin 30.5 pg Mean Corpuscular Hemoglobin Concent 35.8 g/dl RDW Standard Deviation 39.1 fL RDW Coefficient of Variation 12.7 % Platelet Count 209 K/uL Mean Platelet Volume 11.7 fL Sodium Level 143 mmol/L Potassium Level 3.7 mmol/L Chloride Level 109 mmol/L Carbon Dioxide Level 27 mmol/L Anion Gap 7.0 mmol/L Blood Urea Nitrogen 7 mg/dl Creatinine 0.57 mg/dl Est Creatinine Clear Calc Drug Dose 173.9 ml/min Estimated GFR () 146.2 Estimated GFR (Non- 126.2 BUN/Creatinine Ratio 12.5 Random Glucose 94 mg/dl Calcium Level 8.3 mg/dl Magnesium Level 2.1 mg/dl Assessment and Plan 26 y/o F - 6 weeks - G4, P3 - no significant medical history - developed nausea and vomiting wich persisted over the last 2 days and presented to the ER. While in the ER she had an episode of coffee-ground emesis which was confirmed as Hemoccult positive. She has mild central abdominal pain. She found out she was 1 week ago.. She denies SOB, CP, dysuria, fevers. Per hospital records she had presented to the ER 11/13 with c/o vaginal bleeding and had a ultrasound showing a viable fetus with appropriate gestational parameters. She has not followed-up with an laundromat worker as she states she does not have insurance. Hyperemesis/hematemesis, ?Yudy-Hankins tear: - Admit to tele for cardiac monitoring-->reviewed- episodes of bradycardia (40s ) w/ episodes of tachycardia (100-110s) - IV D5NSS + 20 mEq KCL - NPO--> will advance diet once procedure complete - PPI drip--> Protonix 40 mg PO daily - IV Zofran PRN - Trended H&H- stable - Consult GI appreciate recommendations -- No EGD at this time - Follow PRP and mag level 6 weeks /vaginal bleeding--> miscarriage: - Consulted CUSTOMS APPRAISER, appreciate recommendations -- D&C on 11/20 - Transvaginal US- Single intrauterine gestation with estimated postmenstrual age of 8 weeks and 0 days. The gestational sac appears smaller than on the prior study and somewhat irregular. No cardiac activity was demonstrated. The findings likely represent a missed . - Checked bHCG, Progesterone, Rh factor - IV Morphine for pain control Leukocytosis, ?secondary to , ?reacting to N/V- resolving: - No s/s of infection, continue to monitor - Follow CBC DVT prophylaxis: ANGI and SCDs -- No chemical therapy secondary to hematemesis/vaginal bleeding Code Status: LEVEL I, FULL Dispo: Discharge to home once medically stable
[2016-11-20] MEDS ORDERED: PRT40 PO (13:25)
[2016-11-20] MEDS ORDERED: ONDA4TAB65 PO (13:25)
[2016-11-20] MEDS ORDERED: SODIUM CHLORIDE 0.9% 1000ML 1,000 ML IV SCH (13:28)
[2016-11-20] MEDS ORDERED: OXYCODONE/ACETAMINOPHEN 5-325 TAB PO PRN ×2 (13:30)
[2016-11-20] MEDS ORDERED: KETOROLAC TROMETHAMINE 30 MG/ML VIAL IV. PRN (13:30)
[2016-11-20] MEDS ORDERED: IBUPROFEN 600 MG TAB PO PRN (13:30)
[2016-11-20] MEDS ORDERED: HYDROCODONE/ACETAMOPHEN 5/325MG TAB PO PRN ×4 (13:30)
--- NOTE | 2016-11-20 13:31 | Discharge Instructions ---
Discharge Instructions Date of Service Nov 20, 2016. Admission Reason for Admission: Hematemesis, Hyperemesis Discharge Discharge Diagnosis / Problem: Hematemesis; hyperemesis; miscarriage Discharge Goals Goal(s): Decrease discomfort, Learn about illness, Diagnostic testing, Therapeutic intervention Activity Recommendations Activity Limitations: resume your previous activity . Instructions / Follow-Up Instructions / Follow-Up You may take Zofran 4 mg by mouth every 6 hours as needed for nausea Take Protonix 40 mg by mouth once daily x2 weeks Please follow-up with your PCP within 5-7 days Please follow-up/keep all of your subspecialty appointments ACTIVITY RECOMMENDATIONS: * There are no restrictions on activity after a D&C. * You can do anything you feel like doing - bathing, driving, eating, sports are all okay the next day. * It is best not to plan a lot of activity on the day of surgery. RETURN TO SCHOOL/WORK: * You may return to school or work after 24 hours unless otherwise specified by your physician. DIET: * Mild nausea may occur in the immediate post-operative period. Take clear liquids such as tea, cola or bouillon until all nausea has subsided; you may then resume your normal diet. SPECIAL CARE: * Light bleeding and vaginal spotting can last from a few days to 3-4 weeks. If it is an unusual amount, profuse flow, call your physician. FOLLOW UP: Please call your physician's office for an appointment for 6 weeks after your surgery Current Hospital Diet Patient's current hospital diet: Clear Liquid Diet Discharge Diet Recommended Diet: Regular Diet Procedures Procedures Performed: 1. Transvaginal ultrasound 2. D&C (dilation and curettage) Pending Studies Studies pending at discharge: no Laboratory Results Last 24 Hours Test 11/19/16 16:10 11/19/16 23:00 11/20/16 05:16 Progesterone Level 9.25 ng/mL Human Chorionic Gonadotropin, Quant 09541 mIU/mL Hemoglobin 11.2 g/dL 11.2 g/dL Hematocrit 31.0 % 31.3 % White Blood Count 15.01 K/uL Red Blood Count 3.67 M/uL Mean Corpuscular Volume 85.3 fL Mean Corpuscular Hemoglobin 30.5 pg Mean Corpuscular Hemoglobin Concent 35.8 g/dl RDW Standard Deviation 39.1 fL RDW Coefficient of Variation 12.7 % Platelet Count 209 K/uL Mean Platelet Volume 11.7 fL Sodium Level 143 mmol/L Potassium Level 3.7 mmol/L Chloride Level 109 mmol/L Carbon Dioxide Level 27 mmol/L Anion Gap 7.0 mmol/L Blood Urea Nitrogen 7 mg/dl Creatinine 0.57 mg/dl Est Creatinine Clear Calc Drug Dose 173.9 ml/min Estimated GFR () 146.2 Estimated GFR (Non- 126.2 BUN/Creatinine Ratio 12.5 Random Glucose 94 mg/dl Calcium Level 8.3 mg/dl Magnesium Level 2.1 mg/dl Medical Emergencies . Who to Call and When: Medical Emergencies: If at any time you feel your situation is an emergency, please call 911 immediately. . Non-Emergent Contact Non-Emergency issues call your: Primary Care Provider . . "Provider Documentation" section prepared by Jossy Posadas. VTE Core Measure Inpt VTE Proph given/why not?: SCD's
--- NOTE | 2016-11-20 13:33 | [facility] Post Operative Brief Note ---
Immediate Operative Summary Operative Date Nov 20, 2016. Pre-Operative Diagnosis Missed Post-Operative Diagnosis Same as preop Procedure(s) Performed 1. Transvaginal ultrasound 2. D&C (dilation and curettage) Surgeon Dr. De Jesus Estimated Blood Loss 100 cc Findings large amount of tissue obtained Specimens A: products of conception Complication(s) None Disposition Recovery Room / PACU
[2016-11-20] MEDS ORDERED: ALBUTEROL HFA INHALER 8.5 GM INH ONE (13:37)
--- NOTE | 2016-11-20 13:37 | Discharge Summary ---
Discharge Summary Date of Service Nov 20, 2016. Discharge Summary Admission Date: Nov 19, 2016 at 02:38 Discharge Date: Nov 20, 2016 Discharge Disposition: Home Principal Diagnosis: Miscarriage Problems/Secondary Diagnoses: 1. Hyperemesis 2. Hematemesis 3. Leukocytosis Immunizations: Have You Had Influenza Vaccine: Unknown History of Tetanus Vaccine?: Yes Tetanus Immunization Date: Sep 08, 2009 History of Pneumococcal: Unknown History of Hepatitis B Vaccine: Unknown Procedures: 1. FIRST TRIMESTER OBSTETRICAL ULTRASOUND (transabdominal and endovaginal scanning) CLINICAL HISTORY: Vaginal bleeding. Hyperemesis. . COMPARISON STUDY: 11/13/2016 FINDINGS: A single intrauterine gestation is visualized. The crown-rump length measures 15.8 mm corresponding to an estimated postmenstrual age of 8 weeks and 0 days. The gestational sac appears smaller on today's study and slightly irregular. No embryonic cardiac activity was demonstrated. A 5 mm yolk sac was visualized. The maternal right ovary measured 34 x 20 x 20 mm. The maternal left ovary measured 32 x 15 x 18 mm. IMPRESSION: Single intrauterine gestation with estimated postmenstrual age of 8 weeks and 0 days. The gestational sac appears smaller than on the prior study and somewhat irregular. No cardiac activity was demonstrated. The findings likely represent a missed . If desired, for confirmation, a repeat study could be obtained in 2 - 3 days. Electronically signed by: Kailash Cochran M.D. 11/19/2016 7:04 PM Dictated Date/Time: 11/19/2016 6:58 PM The status of this report is Signed. Draft = Not yet reviewed or approved by Radiologist. Signed = Reviewed and approved by Radiologist. 2. D&C Operative Date Nov 20, 2016. Pre-Operative Diagnosis Missed Post-Operative Diagnosis Same as preop Procedure(s) Performed 1. Transvaginal ultrasound 2. D&C (dilation and curettage) Surgeon Dr. De Jesus Estimated Blood Loss 100 cc Findings large amount of tissue obtained Specimens A: products of conception Complication(s) None Consultations: DOCK CLERK: Dr. De Jesus Medication Reconciliation New Medications: Ondansetron Hcl (Zofran) 4 Mg Tab 4 MG PO PRN PRN for q6h for 10 Days, #40 TAB Pantoprazole (Pantoprazole Sodium) 40 Mg Tab 40 MG PO QAM for 14 Days, #14 TAB Discharge Exam Review of Systems: Constitutional: No chills, No fatigue, No fever, No sweats, No weakness Respiratory: No cough, No hemoptysis, No shortness of breath Cardiovascular: No chest pain, No edema, No palpitations Abdomen: No constipation, No diarrhea, No nausea, No pain, No vomiting Musculoskeletal: No calf pain, No joint pain, No muscle pain, No swelling Genitourinary - Female: No dysuria Neurologic: No numbness/tingling, No weakness Psychiatric: No anxiety, No depression symptoms Integumentary: No itch, No new/changing skin lesions, No rash Physical Exam: General Appearance: no apparent distress Eyes: normal inspection, PERRL ENT: hearing grossly normal Neck: supple Respiratory/Chest: lungs clear, no respiratory distress, no accessory muscle use Cardiovascular: regular rate, rhythm Abdomen / GI: normal bowel sounds, non tender, soft Extremities: no calf tenderness, normal capillary refill Neurologic/Psychiatric: alert, oriented x 3 Skin: normal color, warm/dry, no rash Hospital Course 26 y/o F - 6 weeks - G4, P3 - no significant medical history - developed nausea and vomiting wich persisted over the last 2 days and presented to the ER. While in the ER she had an episode of coffee-ground emesis which was confirmed as Hemoccult positive. She has mild central abdominal pain. She found out she was 1 week ago.. She denies SOB, CP, dysuria, fevers. Per hospital records she had presented to the ER 11/13 with c/o vaginal bleeding and had a ultrasound showing a viable fetus with appropriate gestational parameters. She has not followed-up with an print shop assistant as she states she does not have insurance. Hyperemesis/hematemesis, ?Yudy-Hankins tear: - Admit to tele for cardiac monitoring-->reviewed- episodes of bradycardia (40s ) w/ episodes of tachycardia (100-110s) - IV D5NSS + 20 mEq KCL - NPO for D&C--> advanced s/p D&C - PPI drip--> Protonix 40 mg PO daily - IV Zofran PRN - Trended H&H- stable - Consult GI appreciate recommendations -- No EGD at this time - Follow PRP and mag level 6 weeks /vaginal bleeding--> miscarriage: - Transvaginal US- Single intrauterine gestation with estimated postmenstrual age of 8 weeks and 0 days. The gestational sac appears smaller than on the prior study and somewhat irregular. No cardiac activity was demonstrated. The findings likely represent a missed . - Checked bHCG, Progesterone, Rh factor - IV Morphine for pain control - Consulted DOCK CLERK, appreciate recommendations -- D&C on 11/20 Leukocytosis, ?secondary to , ?reacting to N/V- resolving: - No s/s of infection, continue to monitor - Follow CBC DVT prophylaxis: ANGI and SCDs -- No chemical therapy secondary to hematemesis/vaginal bleeding Code Status: LEVEL I, FULL Dispo: Discharge to home Total Time Spent: Greater than 30 minutes This includes examination of the patient, discharge planning, medication reconciliation, and communication with other providers. Discharge Instructions Please refer to the electronic Patient Visit Report (Discharge Instructions) for additional information. Follow-Up Please follow-up with your PCP within 5-7 days Please follow-up DOCK CLERK as instructed by them Please follow-up/keep all of your subspecialty appointments
[2016-11-20] MEDS ORDERED: METHYLERGONOVINE MALEATE 0.2 MG/ML AMP ONE (13:38)
--- NOTE | 2016-11-20 13:38 | OPERATIVE REPORT ---
DATE OF OPERATION: 11/20/2016 INDICATIONS FOR SURGERY: demise on transvaginal ultrasound. PREOPERATIVE DIAGNOSIS: Hyperemesis, vaginal bleeding, intrauterine demise at approximately 8 weeks gestation. PROCEDURE: Suction sharp curettage of the endometrial cavity. SURGEON: Dr. De Jesus. ESTIMATED BLOOD LOSS: 100 mL. ANESTHESIA: General. OPERATIVE FINDINGS AND PROCEDURE: The patient was brought to the OR table, correctly identified by armband and conversation. General anesthesia was administered. Perineum and vagina were painted with Betadine paint, draped in usual sterile fashion. Catheter was used to empty the bladder. Pelvic exam under anesthesia revealed about 11-12 weeks' gestational size uterus, anteverted. There were no adnexal masses appreciated. Weighted speculum was placed in the posterior vagina. Anterior lip of the cervix was grasped with an Allis. Cervix was already dilated and easily accepted a large dilator. A #10 suction curette was placed in the uterine cavity. Suction was applied and in a short order filled up the entire tissue trap. We changed the tissue trap and then resuctioned out the endometrial cavity obtaining additional tissue. I then gently curetted the cavity, resuctioned it twice and removed all remaining clots and debris. I then did a manual massage with Pitocin running and uterus contracted nicely and hemostasis was achieved. Following this, the procedure was terminated. The patient tolerated the procedure well and left the OR in good condition. I attest to the content of the Intraoperative Record and any orders documented therein. Any exceptio ns are noted below.
--- NOTE | 2016-11-20 14:23 | Anesthesiology Progress Note ---
Anesthesia Post Op Note Date & Time Nov 20, 2016 at 14:24 Vital Signs Pain Intensity: 0 Vital Signs Past 12 Hours Date Time Temp Pulse Resp B/P Pulse Ox O2 Delivery O2 Flow Rate FiO2 11/20/16 14:10 36.2 51 16 120/63 99 Room Air 11/20/16 14:05 51 16 121/62 99 Room Air 11/20/16 13:55 56 16 118/64 100 Mask 10 11/20/16 13:45 67 16 134/87 100 Mask 10 11/20/16 13:35 36.6 90 16 133/88 99 Mask 10 11/20/16 11:49 36.7 78 18 110/60 97 Room Air 11/20/16 08:00 98 Room Air 11/20/16 07:28 36.8 58 16 85/68 98 Room Air 11/20/16 03:50 36.4 Notes Mental Status: alert / awake / arousable, participated in evaluation Pt Amnestic to Procedure: Yes Nausea / Vomiting: adequately controlled Pain: adequately controlled Airway Patency, RR, SpO2: stable & adequate BP & HR: stable & adequate Hydration State: stable & adequate Anesthetic Complications: no major complications apparent
== END 2016-11-20 16:05 | disposition home or self-care (01) | DRG 770 ==
LOC: ENRESERVDT → ENRESERVTM → C.EDB 23:59 → C.MED 11-19 02:38 → C.MS4N 11-20 15:27
PROVIDERS: ADMIT Internal Medicine; ATTEND Internal Medicine
PROC: 10D17ZZ Extraction of Products of Conception, Retained, Via Natural or Artificial Opening (ICD-10-PCS; principal; 2016-11-20 12:45)
DX: O02.1 Missed abortion (principal); K22.6 Gastro-esophageal laceration-hemorrhage syndrome; K92.0 Hematemesis; O99.111 Other diseases of the blood and blood-forming organs and certain disorders involving the immune mechanism complicating pregnancy, first trimester; O99.411 Diseases of the circulatory system complicating pregnancy, first trimester; D72.829 Elevated white blood cell count, unspecified; R00.0 Tachycardia, unspecified; R00.1 Bradycardia, unspecified; O99.611 Diseases of the digestive system complicating pregnancy, first trimester; O21.1 Hyperemesis gravidarum with metabolic disturbance; E86.0 Dehydration; O99.330 Smoking (tobacco) complicating pregnancy, unspecified trimester; F17.200 Nicotine dependence, unspecified, uncomplicated; Z3A.01 Less than 8 weeks gestation of pregnancy